=== PATIENT | female | born 1950 | race Caucasian/White ===

== ENCOUNTER 2016-12-14 01:56 | Inpatient (IN) | payer OTHER ==
[~2016-12-14] VITALS: Ht 157.5 cm; Wt 70.3 kg
[~2016-12-14 01:56] MED LIST: ALENDRONATE SOD70 MG PO; FIBRO-TABS1 TAB PO; IBUPROFEN200 M2 PO; SERTRALINE HCL50 MG PO; TRAMADOL HCL50 M1 PO; TYLENOL325 M1 PO; VICODIN5-300 PO; VITAMIN D32000 I1 PO; ZOFRAN ODT4 M1 SL
--- NOTE | 2016-12-14 13:46 | RADIOLOGY REPORT ---
EXAMINATION:\H\ \N\XR CHEST CLINICAL INFORMATION: Left upper lung navigational bronchoscopy in OR COMPARISON: Chest radiograph 11/28/2016 CT 12/05/2016. TECHNIQUE: Single fluoroscopic view of the chest was obtained. FINDINGS: Total fluoroscopic time was 0.9 minutes. The single image demonstrates a scope overlying the left hilar region with additional tubing extending laterally from the hilar region, likely a biopsy device. This is seen at the level of the left upper lobe opacity on prior CT. IMPRESSION: Fluoroscopic guidance for left upper lung bronchoscopy. Please refer to procedural report for further information.
--- NOTE | 2016-12-14 15:52 | Cons- CRCU ---
MITCHELLSARMAD 12/14/16 1552: General Information and HPI Consulting Request Date of Consult: 12/14/16 Requested By: Dr. Mcneal Reason for Consult: Non-small cell CA Source of Information: patient Exam Limitations: clinical condition (pain) History of Present Illness: Ms. Cordova is a 66-year-old woman with a PMH of hyperparathyroidism s/p partial parathyroidectomy, diverticulitis, fibromyalgia, mild arthritis, depression, and generalized anxiety disorder who was recently treated in the hospital for gallstone pancreatitis leading to a cholecystectomy. During that work-up and treatment, an irregular focal masslike opacification in the anterior segment of the left upper lobe measuring 22.4 x 1.6 x 1.4 was identified. Subsequent outpatient evaluation of the lesion was PET positive. Today, she was scheduled for a navigational bronchoscopy which identified a non small cell CA in the left upper lobe and subsequently, a ABBIE lobectomy with mediastinal lymph node dissection was performed with eventual placement of 2 chest tubes. At the time of the interview, she had no acute complaints aside from pain at the site of the incision and her chest tubes. She denied any significant dyspnea, coughing, hemoptysis, palpitations, lightheadedness, dizziness, or diplopia. She also denies any fevers, chills, diaphoresis, nausea or vomiting. Allergies/Medications Allergies: Coded Allergies: shellfish derived (Mild, RASH -SPECIFICALLY LOBSTER BUT DOESNT EAT ANY SEAFOOD 02/20/16) Home Med List: Alendronate Sodium 70 MG TAB 1 TAB PO QSUN BONES (Reported) in the morning, at least 30 minutes before the first food, beverage, or medication of the day CHOLECALCIFEROL (VITAMIN D3) (Vitamin D-3) 2,000 IU SGL 1 SGL PO DAILY SUPPLEMENT (Reported) Sertraline HCl 50 MG TABLET 1 TAB PO DAILY depression (Reported) Current Medications: Current Medications Sig/Lasha Start time Last Medication Dose Route Stop Time Status Admin Acetaminophen 1,000 MG Q6 12/14 1800 AC 12/14 IV 12/15 Albuterol Sulfate 3 ML Q4 12/14 2200 AC 12/14 INH 2047 Alendronate Sodium 70 MG QSUN 12/17 0700 AC PO Cefazolin Sodium 2,000 MG IQ8 12/14 2000 CAN IV 12/15 0801 Cefazolin Sodium 2 GM Q8H 12/14 1999 AC 12/14 N/A 1 UNIT IV 12/155 Cholecalciferol 2,000 IU DAILY 12/15 1000 AC PO Dextrose/Sodium 1,000 ML CONTINOUS INFUSION 12/14 2325 AC Chloride IV Docusate Sodium 100 MG BID 12/14 2199 AC PO Famotidine 20 MG BID 12/14 2199 AC IV Heparin Sodium 5,000 UNIT Q8 12/15 0600 AC (Porcine) SC Morphine Sulfate 100 MG Q24H PRN 12/14 1914 CAN Sodium Chloride 48 ML IV Morphine Sulfate 100 MG Q24H PRN 12/14 1914 AC Sodium Chloride 48 ML IV Morphine Sulfate 100 MG Q24H PRN 12/14 1645 DC Sodium Chloride 48 ML IV Ondansetron HCl 4 MG Q6P PRN 12/14 1899 AC IV Sertraline HCl 50 MG DAILY 12/15 1000 AC PO Review of Systems Review of Systems Constitutional: Reports: see HPI. 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 spouse Services at Home: None Smoking Status: Unknown If Ever Smoked Functional Ability ADLs Independent: dressing, eating, toileting, bathing. Ambulation: independent IADLs Independent: shopping, housework, finances, food prep, telephone, transportation , medication admin. Exam & Diagnostic Data Last 24 Hrs of Vital Signs/I&O Vital Signs Date Time Temp Pulse Resp B/P Pulse O2 O2 Flow FiO2 Ox Delivery Rate 12/14 1999 98.6 83 15 109/51 12/14 1999 98 Nasal 2.0L Cannula 12/14 1920 Nasal 3.0L Cannula 12/14 1899 99.2 87 18 128/60 12/14 1829 99.2 87 18 128/60 96 Nasal 2.0L Cannula 12/14 1829 96 Nasal 2.0L Cannula Physical Exam General Appearance: well developed/nourished, no apparent distress, alert, awake , mild distress Head: atraumatic, normal appearance Eyes: Bilateral: normal appearance, PERRL, EOMI. Neck: normal inspection, supple Respiratory: respiratory distress, quiet breath sounds with moderate resp effort right lung clear to auscultation rhonchi noted in the left upper lobe chest tubes in place to suction draining sanguinous fluid, dressing dry and in tact. chest is non tender to palpation Cardiovascular: S1/S2 + with 2/6 systolic murmur w/o radiation Gastrointestinal: normal bowel sounds, soft, non-tender Extremities: normal inspection Last 48 Hrs of Labs/Bon: Vital Signs Date Time Temp Pulse Resp B/P Pulse O2 O2 Flow FiO2 Ox Delivery Rate 12/14 1999 98.6 83 15 109/51 12/14 1999 98 Nasal 2.0L Cannula 12/14 192 Nasal 3.0L Cannula 12/14 190 99.2 87 18 128/60 12/14 1830 99.2 87 18 128/60 96 Nasal 2.0L Cannula 12/14 183 96 Nasal 2.0L Cannula Diagnostic Data CXR Results SERVICE DATE: 12/14/16 EXAM TYPE: RAD - XRY-PORTABLE CHEST XRAY EXAMINATION: XR PORTABLE CHEST CLINICAL INFORMATION: Left upper lobe status post navigational bronchoscopy COMPARISON: Prior imaging, most recently fluoroscopic study from today TECHNIQUE: Portable view of the chest was obtained. FINDINGS: Left-sided chest tubes in place. Cardiac leads overlie the chest. Low lung volumes. Increased hazy opacity overlies the left midlung, possibly representing a biopsy site. The right lung is well-expanded and clear. No pneumothorax. Obtaining is gas noted along the left chest wall. The cardiomediastinal silhouette is unremarkable. IMPRESSION: Focal opacity overlying the left midlung, likely representing a biopsy site. No pneumothorax. Chest tubes in place. Assessment/Plan Impression/Plan: Ms. Cordova is a 66-year-old woman who was recently treated in the hospital for gallstone pancreatitis leading to a cholecystectomy with incidentally found ABBIE mass, subsequently diagnosed by navigational bronchoscopy today with non-small cell CA s/p ABBIE lobectomy with mediastinal lymph node dissection. Problem List/Assessment and Plan Left upper lobe NSCCa * PO#0 s/p ABBIE lobectomy with mediastinal lymph node dissection. * Chest tubes currently in place to suction draining sanguinous fluid - see CXR reading above. We will follow outputs and remove per CT surgery most likely when the output decreases significantly * Consider repeat CXR in the am * we will follow blood work and electrolytes * ABx with Cefazolin 2gram x2 doses q8 - currently recieving her second dose. * Pain control with morphine TRAVEL COORDINATOR per CT surgery * LN histopathology pending Osteoporosis * Continue Vitamin D and alendronate Depression * Continue sertraline 50mg daily FULL CODE ALPS/heparin SC for DVT ppx tylenol IV for fevers Consult Acknowledgment - Thank you for your consult request. ONOFRE SCOTT MD 12/14/16 1612: Assessment/Plan Other Findings/Comments: Onofre Hedrick M.D. have examined this patient, reviewed available EMR data, personally reviewed images, discussed with resident/PA/CONTOUR BAND SAW OPERATOR VERTICAL, discussed management plan with housestaff and nursing staff, discussed managment plan all of healthcare providers, discussed management plan with patient and/or family, agreed with resident/PA/CONTOUR BAND SAW OPERATOR VERTICAL. The past history and parts of the chart have been autopopulated. Impression 66-year-old woman with a cholecystectomy September with an incidental finding of a left upper lobe mass. Lesion was a regular in the left upper lobe and PET positive. Patient underwent navigational bronchoscopy with thinking followed by resection of mass consistent with carcinoma and has followed by lobectomy. Plan - Aggressive pain control - Post thoracotomy protocol with TRC - Chest tube output and monitoring per cardiothoracic surgery - Strict ins and outs measurements - Monitor blood work and electrolytes - DVT prophylaxis at all times TTS 40 min Consult Acknowledgment - Thank you for your consult request.
--- NOTE | 2016-12-14 16:21 | Admission Certification ---
Admission Certification Certification Statement - As attending physician, I certify that at the time of - admission, based on clinical presentation, severity of - symptoms, need for further diagnostic testing and - therapeutic interventions, and risk of adverse outcomes - without in-hospital treatment, in my clinical assessment, - this patient requires an acute hospital stay for a minimum - of two nights or longer. I have also considered psychsocial - factors such as support system, advanced age, financial - issues, cognitive issues, and failed out-patient treatments, - past re-admission history, safety of patient, and lack of - compliance as applicable. Specific rationale supporting this admission is: Major thoracic surgery with postoperative intensive care unit stay of at least 2 days.
--- NOTE | 2016-12-14 16:23 | Operative Report ---
Operative/Inv Procedure Report Surgery Date: 12/14/16 Name of Procedure: Navigational bronchoscopy with ink marking of left upper lobe lung lesion Pre-Operative Diagnosis: Left upper lobe lung nodule Post-Operative Diagnosis: Same Estimated Blood Loss: none Surgeon/Certified Executive Chef: Onofre Cho MD Anesthesia: general endotracheal tube Operative/Procedure Note Note: After placement of monitoring lines and induction of general anesthesia fiberoptic bronchoscopy was done through the endotracheal tube. The endobronchial anatomy was normal. The navigation system was then registered and the catheter was advanced with navigational guidance and fluoroscopy to the left upper lobe lung nodule. 0.75 mL of methylene blue was injected aiming towards the pleural surface. The guider catheter was removed. The there was no evidence of bleeding. The procedure proceeded with the resection. CC: SONIA BLAKE,ONOFRE
--- NOTE | 2016-12-14 16:27 | Operative Report ---
Operative/Inv Procedure Report Surgery Date: 12/14/16 Name of Procedure: Left thoracoscopy with wedge resection left upper lobe lung nodule. Left upper lobectomy with mediastinal lymph node dissection Pre-Operative Diagnosis: Left upper lobe lung nodule Post-Operative Diagnosis: Non-small cell carcinoma the left upper lobe Estimated Blood Loss: 50ml to 100ml Surgeon/Chemical Process Engineer: ZECHARIAH BLAKE,JORGITO Olivera Anesthesia: general endotracheal tube Operative/Procedure Note Note: At the completion of the navigational bronchoscopy the endotracheal tube was changed to a double-lumen endotracheal tube. The patient was placed in the right lateral decubitus position and her left chest was prepped with an draped in sterile fashion. An access thoracostomy site was made in the midaxillary line and thoracoscope was introduced. The ink marking was seen very clearly on the surface of the left upper lobe anteriorly. To access thoracostomy sites were made and the lesion was resected. Intraoperative frozen section showed evidence of non-small cell carcinoma. A posterior lateral thoracotomy incision was then made and the chest was entered through the fifth intercostal space. There was little to no development of the fissure so dissection was done from the superior hilum in a no touch technique allowing identification of all of the pulmonary arterial branches. These were resected with the Endo BECKY vascular stapler. The superior vein was similarly ligated with a vascular stapler. Once the pulmonary arterial adhesions were taken down all the fissure was done from posterior to anterior with the Endo BECKY stapler. The final pulmonary arterial branches to the lingula was then resected with the Endo BECKY vascular stapler. The main bronchus was then encircled and it was secured with the TA 55 reticulating stapler. Intraoperative frozen section showed no evidence of carcinoma the bronchial stump. Lymph nodes removed from level V level and level IX and sent for permanent histology. The inferior pulmonary ligament was divided. Long-acting rib blocks were placed. The fissure was sprayed with Pro seal sealant. The bronchial stump was insufflated under water to 30 mmHg with no evidence of air leak. A portion of the sixth rib was resected in the beginning to allow for better access. The ribs were then reapproximated with pericostal sutures. The lung was reinsufflated under direct vision. The wound was then closed in layers with running Vicryl suture followed by running Vicryl subcuticular suture. The patient tolerated the procedure well and was brought to the recovery room awake and extubated in stable condition. CC: SONIA BLAKE,RAE
--- NOTE | 2016-12-14 17:17 | RADIOLOGY REPORT ---
EXAMINATION: XR PORTABLE CHEST CLINICAL INFORMATION: Left upper lobe status post navigational bronchoscopy COMPARISON: Prior imaging, most recently fluoroscopic study from today TECHNIQUE: Portable view of the chest was obtained. FINDINGS: Left-sided chest tubes in place. Cardiac leads overlie the chest. Low lung volumes. Increased hazy opacity overlies the left midlung, possibly representing a biopsy site. The right lung is well-expanded and clear. No pneumothorax. Obtaining is gas noted along the left chest wall. The cardiomediastinal silhouette is unremarkable. IMPRESSION: Focal opacity overlying the left midlung, likely representing a biopsy site. No pneumothorax. Chest tubes in place.
--- NOTE | 2016-12-14 17:36 | Admission Core Measures ---
Acute Coronary Syndrome Inclusion Criteria ACS Diagnosis No Inpatient Core Measures LDL Reminder: If No, please order W/I first 24hr of stay Congestive Heart Failure Inclusion Criteria CHF Diagnosis No Cerebrovascular accident Inclusion Criteria CVA/TIA Diagnosis No Inpatient Core Measures Bedside Swallow Eval Reminder: If BSE failed, place ST order Antithrombotic Reminder: Order Antithrombotic Medication by end of day 2 Antithrombotic Reminder: Document Reason Antithrombotic Not ordered by end of day 2 AFIB/Flutter Reminder: If Present, add to problem list AFIB/Flutter Reminder: Order Anticoag Medication for pts with AFIB/Flutter Atherosclerosis Reminder: If Present, add to problem list LDL Reminder: If No, please order W/I first 24hr of stay PT Order Reminder: If No, please order Venous thromboembolism Inpatient Core Measures VTE Risk Factors: Age > 40, Cancer/chemo/oth therapy, Surgery VTE Prophylaxis Ordered Inpt Mech & Pharm No Mech VTE prophylaxis d/t No contraindications No VTE Pharm Prophylaxis d/t No contraindications Inclusion Criteria - Per Current guidelines, there needs to be overlap - treatment for the first 5 days of Warfarin therapy. - Parenteral Anticoagulation (IV or SC) needs to be - given along with Warfarin therapy. VTE Diagnosis No VTE Type NONE VTE Confirmed by (Test) NONE Problem List As ranked by this Provider includes Assessment & Plan 1. Lung nodule 2. S/P lobectomy of lung 3. S/P thoracotomy HOME MEDS Home Med List Alendronate Sodium 70 MG TAB 1 TAB PO QSUN BONES (Reported) CHOLECALCIFEROL (VITAMIN D3) (Vitamin D-3) 2,000 IU SGL 1 SGL PO DAILY SUPPLEMENT (Reported) Sertraline HCl 50 MG TABLET 1 TAB PO DAILY depression (Reported)
[2016-12-14 18:30] VITALS: BP 128/60
[2016-12-14 19:00] VITALS: BP 128/60
[2016-12-14 20:00] VITALS: BP 109/51
--- NOTE | 2016-12-14 21:02 | NUR ---
PT DROWSY, EASILY AROUSABLE TO VERBAL STIMULI, ORIENTED X3, FOLLOWS COMMANDS. 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 RT SIDED BREATH SOUNDS CLEAR, DIMINISHED THOUGHOUT LT SIDE. LT SIDE ANTERIOR AND POSTERIOR CHEST TUBES IN PLACE-NO CREPITUS NOTED, DRAINING SEROSAGINIOUS DRAINAGE, ANTERIOR CHEST TUBE WITH LARGE AIR LEAK, POSTERIOR CHEST TUBE WITHOUT AIR LEAK. NO SOB OR RESP DISTRESS NOTED AT PRESENT. SEE FLOW SHEET FOR VS, 02 SATS, I/O'S. MONITOR SHOWS NSR-ST, NO ECTOPY NOTED AT PRESENT. LT RADIAL YULI IN PLACE-GOOD WAVEFORM. BP STABLE AT PRESENT. ABD SOFFT, NONTENDER, NONDISTENDED, HYPOACTIVE BOWEL SOUNDS. PARKINSON IN PLACE-DRAINING ADEQUATE AMT OF CLEAR YELLOW URINE. SKIN INTACT. LT BACK DRESSING WITH SM AMT OF SEROSAGINIOUS DRAINAGE-OUTLINED WITH MARKER
[2016-12-14 22:00] VITALS: BP 98/50
--- NOTE | 2016-12-14 23:54 | PN- Thoracic Surgery ---
Subjective Subjective: Postoperative check Pt is now POD #0 s/p navigational bronchoscopy, wedge resection, found to have margins positive for malignancy on frozen section. She subsequently underwent Left upper lobectomy, which she tolerated well, and was transferred to the ICU for routine post-thoracotomy care. She admits to discomfort at the incision and chest tube sites, which has been reasonably controlled with the morphine writer technical publications. She admits to pain with deep breathing as well. She is tolerating ice chips. No nausea or vomiting. No flatus as of yet. Otherwise denies headache, dizziness. Palma catheter remains in place. Objective Vital Signs and I&Os Vital Signs Date Time Temp Pulse Resp B/P Pulse O2 O2 Flow FiO2 Ox Delivery Rate 12/14 220 79 17 98/50 12/14 1999 98.6 83 15 109/51 12/14 1999 98 Nasal 2.0L Cannula 12/14 192 Nasal 3.0L Cannula 12/14 190 99.2 87 18 128/60 12/14 1829 99.2 87 18 128/60 96 Nasal 2.0L Cannula 12/14 1829 96 Nasal 2.0L Cannula Urine output was 80-100 ml per hour upon arrival to ICU, but has dropped to 25 ml x [address] output since OR is 140 mL in the anterior tube and 160 mL from the posterior tube. Physical Exam: General: Pt is sleeping comfortably, but easily arousable. Cardiac: Regular Pulm: Posterior thoracotomy dressing contains a small amount of drainage, which doesn't appear to have expanded outside of the marked area from earlier today. Poor inspiratory effort is noted, but shallow breathing is clearly due to pain. There is a robust air leak noted from the anterior CT, but no air leak noted in the posterior tube. Output is serosanginous. 140 from the anterior tube and 160 from posterior tube so far. Assessment/Plan Assessment/Plan Patient is a 66-year-old female with medical history significant for depression, who is now postoperative day #0 status post VATS wedge resection, resulting in positive margins on frozen section, and subsequent conversion to left upper lobectomy. There are [address] 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 -Continue clear liquids for now. Okay to advance diet as tolerated. -Increase IV fluids to 125 mL per hour overnight. If her urine output improves in the morning, we can decrease her rate again. Leave Palma catheter in place for critical I's and O's. -Keep chest tubes in place to Pleur-evac suction. Follow-up chest x-ray in the morning. Continue to monitor outputs. -Encourage incentive spirometer and deep breathing. TRC's. -Ancef 2 doses for surgical prophylaxis. -Subcutaneous heparin and Alps for DVT prophylaxis. -Pepcid for GI prophylaxis. -Colace twice a day for bowel regimen. -Medical management per critical care team. Appreciate consult and input. -Continue to monitor closely. Core Measures/Miscellaneous Palma Catheter Date In: 12/14/16 Still Needed? Yes Venous Thromboembolism VTE Risk Factors: Age > 40, Cancer/chemo/oth therapy, Surgery VTE Contraindications: No Contraindications VTE [facility] Diagnosis: No VTE Type: NONE VTE Confirmed by (Test): NONE Beta Rachna Is Beta Rachna a Home Med? No Antibiotics Is Patient on Antibiotics? Yes If Yes: prophylaxis
[2016-12-15] VITALS (11 sets, daily range): BP systolic 92–135; BP diastolic 43–64
--- NOTE | 2016-12-15 00:20 | NUR ---
URINE OUTPUT DECREASING-25ML/HR FOR 2HRS-REPORTED TO SURGICAL PEYMAN MALCOLM-INCREASED IVF TO 125ML/HR ORDERED-SEE I/O SHEET-WILL MONITOR
--- NOTE | 2016-12-15 05:30 | PN- Thoracic Surgery ---
See Addendum Subjective Subjective: No acute events overnight for major complaints this morning. Patient continues to admit to discomfort at the surgical incision site, as expected. She admits to pain with deep breathing, as expected. She is tolerating ice chips. No nausea or vomiting overnight. She did have some hiccups last night. Palma catheter remains in place. IV fluid rate was increased slightly last night due to borderline urine output. Per RN, arterial line and is not correlating with manual blood pressures and is not providing successful blood return for blood draws. Otherwise denies headache, dizziness. Objective Vital Signs and I&Os Vital Signs Date Time Temp Pulse Resp B/P Pulse O2 O2 Flow FiO2 Ox Delivery Rate 12/15 0400 97.4 79 18 100/47 12/15 0400 98 Nasal 2.0L Cannula 12/15 0200 76 18 92/45 12/15 0000 97.9 78 20 122/64 12/15 0000 98 Nasal 2.0L Cannula 12/15 0000 97.9 78 20 122/64 98 Nasal 2.0L Cannula 12/14 2200 79 17 98/50 12/14 1999 98.6 83 15 109/51 12/14 1999 98 Nasal 2.0L Cannula 12/14 1921 Nasal 3.0L Cannula 12/14 1900 99.2 87 18 128/60 12/14 1830 99.2 87 18 128/60 96 Nasal 2.0L Cannula 12/14 1830 96 Nasal 2.0L Cannula Intake & Output 12/15 0800 12/15 0000 12/14 1600 12/14 0800 12/14 0000 12/13 1600 Intake Total 311 Output Total 681 Balance -370 Intake, IV 311 Number 0 Bowel Movements Output, Chest 176 Tube Drainage Output, Urine 505 Patient 155 lb Weight Physical Exam: General: Pt is sleeping comfortably, but easily arousable. Cardiac: Regular Pulm: Posterior thoracotomy dressing contains a small amount of drainage, slightly increased versus last night, but not leaking outside of the dressing. Poor inspiratory effort continues due to pain. There is a persistent air leak noted from the anterior CT, but no air leak noted in the posterior tube. Output is serosanginous. 200 from the anterior tube and 220 from posterior tube so far since surgery. Extremities: No significant lower extremity edema or calf tenderness are appreciated. Alps arm place. Labs this morning are still pending. Assessment/Plan Assessment/Plan Patient is a 66-year-old female with medical history significant for depression, who is now postoperative day #1 status post VATS wedge resection, resulting in positive margins on frozen section, and subsequent conversion to left upper lobectomy. There are [address] Plan: -Continue pain control with morphine HEAD OF IT. -Continue clear liquids for now. Okay to advance diet as tolerated. -Continue IV fluids at 125 mL per hour until increased by mouth fluid intake. Leave Palma catheter in place for critical I's and O's. -Keep chest tubes in place to Pleur-evac suction. Follow-up chest x-ray this morning. Continue to monitor outputs. -Encourage incentive spirometer and deep breathing. TRC's. -Okay to discontinue arterial line. -Antibiotic prophylaxis is complete. -Subcutaneous heparin and Alps for DVT prophylaxis. -Pepcid for GI prophylaxis. -Colace twice a day for bowel regimen. -Medical management per critical care team. Appreciate input. -Continue to monitor closely. Core Measures/Miscellaneous Palma Catheter Date In: 12/14/16 Venous Thromboembolism VTE Risk Factors: Age > 40, Cancer/chemo/oth therapy, Surgery VTE Contraindications: No Contraindications VTE Prophylaxis Ordered Inpt: Mech & Pharm VTE Diagnosis: No VTE Type: NONE VTE Confirmed by (Test): NONE Beta Rachna Is Beta Rachna a Home Med? No Antibiotics Is Patient on Antibiotics? No
[2016-12-15 06:13] LABS: ABSOLUTE BASOPHIL COUNT 0 /CUMM (0.0-0.2); ABSOLUTE EOSINOPHIL COUNT 0 /CUMM (0.0-0.7); ABSOLUTE GRANULOCYTE CT 6.4 /CUMM (1.4-6.5); ABSOLUTE LYMPH COUNT 1.2 /CUMM (1.2-3.4); ABSOLUTE MONOCYTE COUNT 0.4 /CUMM (0.10-0.60); BASOPHIL % 0.3 % (0.0-2.0); EOSINOPHIL % 0.5 % (0-5); GRANULOCYTE % 79.9 % (42.2-75.2); MEAN CORPUSCULAR HGB 30.2 PG (27.0-31.0); MEAN CORPUSCULAR HGB CONC 33.4 G/DL (33.0-37.0); MEAN CORPUSCULAR VOLUME 90.4 FL (81.0-99.0); MEAN PLATELET VOLUME 9.4 FL (7.4-10.4); PLATELET COUNT 238 /CUMM (130-400); RBC DISTRIBUTION WIDTH 14.1 % (11.5-14.5); RED BLOOD CELL CT 3.69 /CUMM (4.20-5.40)
[2016-12-15 06:22] LABS: HEMATOCRIT 33.4 % (37-47)
--- NOTE | 2016-12-15 07:32 | NUR ---
PT SLEPT ON AND OFF DURING THE NIGHT. PAIN RATED 6-8 OUT OF 10 FOR SHIFT. CONTINUES ON MORPHINE ANTIQUE REFINISHER. REMAINS A/OX3. NO CHANGE IN BREATH SOUNDS, CHEST TUBES DRAINING SEROSAGINIOUS DRAINAGE, ANTERIOR CHEST TUBE WITH LARGE AIR LEAK, NO AIR LEAK POSTERIOR CHEST TUBE. NO CREPITUS NOTED. LT BACK DRESSING WITH BLOODY DRAINAGE-EXTENDED SLIGHTLY BEYOND MARKED LINES. NSR, NO ECTOPY FOR SHIFT, SBP-90-100'S FOR SHIFT. BORDERLINE URINE OUTPUT FOR SHIFT-SURGICAL PA AWARE. SKIN INTACT. HYPOACTIVE BOWEL SOUNDS. NO NAUSEA, VOMITING NOTED THOUGHOUT SHIFT
--- NOTE | 2016-12-15 09:33 | PN- Resident CRCU ---
Subjective HPI/CRCU Issues: Patient in ICU for: Postop day 1 status post right upper lobe lobectomy for non- small cell cancer. Has remained hemodynamically stable with O2 sats in the high 90s on 2 L nasal cannula. MAXIMUM TEMPERATURE 99.2. Blood pressure is ranging between 94-130 systolic and 43-60 diastolic. Objective Vital Signs & I&O Last 8 Hrs of Vitals and I&O: Intake & Output 12/15 1600 Intake Total 1600 Output Total 410 Balance 1190 Intake, IV 640 Intake, Oral 960 Number 0 Bowel Movements Output, Chest 110 Tube Drainage Output, Urine 300 Exam General Appearance: well developed/nourished, no apparent distress, alert, awake , anxious Head: atraumatic, normal appearance Ears, Nose, Throat: normal pharynx Neck: normal inspection, supple Respiratory: decreased breath sounds, tender to palpation in back. Has [address] Draining serosang. fluid attached to wall suction. Both tubes covered with clean bandages Cardiovascular: regular rate/rhythm Gastrointestinal: soft, non-tender Extremities: normal inspection Cranial Nerves: normal hearing, normal speech, PERRL Current Medications: Current Medications Sig/Lasha Start time Last Medication Dose Route Stop Time Status Admin Acetaminophen 1,000 MG Q6 12/14 1800 AC 12/15 IV 12/15 1759 1136 Albuterol Sulfate 3 ML Q4 12/14 2199 AC 12/15 INH 1628 Alendronate Sodium 70 MG QSUN 12/17 0700 AC PO Cefazolin Sodium 2,000 MG IQ8 12/14 2000 CAN IV 12/15 0801 Cefazolin Sodium 2 GM Q8H 12/14 2000 DC 12/15 N/A 1 UNIT IV 12/15 0429 0440 Cholecalciferol 2,000 IU DAILY 12/15 1000 AC 12/15 PO 0902 Dextrose/Sodium 1,000 ML Q13H 12/15 1145 CAN Chloride IV Dextrose/Sodium 1,000 ML CONTINOUS INFUSION 12/14 2326 DC 12/15 Chloride IV 0606 Docusate Sodium 100 MG BID 12/14 220 AC 12/15 PO 0902 Famotidine 20 MG BID 12/14 2200 AC 12/15 IV 0902 Heparin Sodium 5,000 UNIT Q8 12/15 0600 AC 12/15 (Porcine) SC 1416 Morphine Sulfate 100 MG Q24H PRN 12/14 1915 CAN Sodium Chloride 48 ML IV Morphine Sulfate 100 MG Q24H PRN 12/14 191 AC Sodium Chloride 48 ML IV Morphine Sulfate 100 MG Q24H PRN 12/14 1645 DC Sodium Chloride 48 ML IV Ondansetron HCl 4 MG Q6P PRN 12/14 1900 AC 12/15 IV 1121 Sertraline HCl 50 MG DAILY 12/15 1000 AC 12/15 PO 0902 Impression/Plan Impression/Problem List Impression: This is a 66-year-old female with past medical history of hyperparathyroidism status post partial parathyroidectomy, diverticulitis, osteoporosis, arthritis, depression, generalized anxiety, fibromyalgia who was recently hospitalized [place] for gallstone pancreatitis with subsequent cholecystectomy. At that time an irregular masslike opacification in the anterior segment of the left upper lobe was identified. Lesion was subsequently PET positive. On 12/14/2016 patient went for navigational bronchoscopy which identified non-small cell carcinoma in left upper lobe, she then had a VATS with wedge resection of the left upper lobe with positive margins which resulted in subsequent left upper lobectomy with lymph node biopsy. She had 2 chest tubes placed Patient is now transferred to ICU for closer monitoring with medicine consult onboard. PLAN Respiratory: She has left upper lobe resection for non-small cell lung cancer. This is postop day 1. She had [address] this AM. One of them was pulled out successfully. She continues to drain serosanguineous fluid from the chest tube. She is currently satting 98% on 2 L nasal cannula. * Pending chest x-ray this a.m. * Patient received 2 doses of cefazolin 2 g every 8 hours post surgically * Pain control with morphine ENGINEERING AND OPERATIONS DIRECTOR * TRC with thoracotomy protocol * Strict I's and O's; Patient on Palma * Will discontinue arterial line * Encourage IS * Pepcid for GI prophylaxis * Follow-up histopathology of lymph nodes ID: Patient is stable from ID perspective. Continue to monitor. She received antibiotics after surgery. She has remained afebrile MAXIMUM TEMPERATURE 99.2, with normal white count. Cardio: Patient is stable from a cardio perspective. Continue to monitor. Heme/Onc: Patient H&H this a.m. was 11 and 33. She has remained hemodynamically stable. We'll continue to monitor her. Musculoskeletal: * pt has hx of osteoporosis: Continue vitamin D and alendronate GI/ Nephro/Endo: Stable continue to monitor. Depression: Continue sertraline 50 mg daily Problem List: 1. Fall 2. S/P lobectomy of lung Pain Ratin Pain Location: none Tomorrow's Labs & Rationales: none Plan DVT/Prophylaxis: mechanical, pharmacological
--- NOTE | 2016-12-15 10:27 | PN- CRCU ---
Subjective HPI/Critical Care Issues: Patient seen and examined this morning. The pain is about 6 out of 10 and the plan is to remove the posterior chest. Otherwise no other events no shortness of breath out of the ordinary. No nausea vomiting no diarrhea no constipation no chest pain. Objective Current Medications: Current Medications Sig/Lasha Start time Last Medication Dose Route Stop Time Status Admin Acetaminophen 1,000 MG Q6 12/14 1800 AC 12/15 IV 12/15 1759 0607 Albuterol Sulfate 3 ML Q4 12/14 2200 AC 12/15 INH 0755 Alendronate Sodium 70 MG QSUN 12/17 0700 AC PO Cefazolin Sodium 2,000 MG IQ8 12/14 2000 CAN IV 12/15 0801 Cefazolin Sodium 2 GM Q8H 12/14 2000 DC 12/15 N/A 1 UNIT IV 12/15 0429 0440 Cholecalciferol 2,000 IU DAILY 12/15 1000 AC 12/15 PO 0902 Dextrose/Sodium 1,000 ML CONTINOUS INFUSION 12/14 2326 AC 12/15 Chloride IV 0606 Docusate Sodium 100 MG BID 12/14 2200 AC 12/15 PO 0902 Famotidine 20 MG BID 12/14 2200 AC 12/15 IV 0902 Fentanyl Citrate 250 MCG .STK-MED ONE 12/14 1524 DC IM 12/14 1525 Fentanyl Citrate 250 MCG .STK-MED ONE 12/14 1523 DC IM 12/14 1524 Heparin Sodium 5,000 UNIT Q8 12/15 0600 AC 12/15 (Porcine) SC 0610 Hydromorphone HCl 2 MG .STK-MED ONE 12/14 1643 DC IM 12/14 1644 Hydromorphone HCl 2 MG .STK-MED ONE 12/14 1523 DC IM 12/14 1524 Midazolam HCl 2 MG .STK-MED ONE 12/14 1524 DC IM 12/14 1525 Morphine Sulfate 100 MG Q24H PRN 12/14 1915 CAN Sodium Chloride 48 ML IV Morphine Sulfate 100 MG Q24H PRN 12/14 1915 AC Sodium Chloride 48 ML IV Morphine Sulfate 100 MG Q24H PRN 12/14 1645 DC Sodium Chloride 48 ML IV Ondansetron HCl 4 MG Q6P PRN 12/14 1900 AC IV Sertraline HCl 50 MG DAILY 12/15 1000 AC 12/15 PO 0902 Vital Signs & I&O Last 24 Hrs of Vitals and I&O: Vital Signs Date Time Temp Pulse Resp B/P Pulse O2 O2 Flow FiO2 Ox Delivery Rate 12/15 0758 100 Nasal 2.0L Cannula 12/15 0600 76 13 94/43 12/15 0400 97.4 79 18 100/47 12/15 0400 98 Nasal 2.0L Cannula 12/15 0200 76 18 92/45 12/15 0000 97.9 78 20 122/64 12/15 0000 98 Nasal 2.0L Cannula 12/15 0000 97.9 78 20 122/64 98 Nasal 2.0L Cannula 12/14 2200 79 17 98/50 12/14 1999 98.6 83 15 109/51 12/14 1999 98 Nasal 2.0L Cannula 12/14 192 Nasal 3.0L Cannula 12/14 190 99.2 87 18 128/60 12/14 1830 99.2 87 18 128/60 96 Nasal 2.0L Cannula 12/14 1830 96 Nasal 2.0L Cannula Intake & Output 12/15 1600 12/15 0800 12/15 0000 Intake Total 962 311 Output Total 275 681 Balance 687 -370 Intake, IV 962 311 Number 0 0 Bowel Movements Output, Chest 176 Tube Drainage Output, Urine 275 505 Patient 155 lb Weight Exam Other Physical Findings: General - Alert, awake and oriented HEENT - normocephalic, atraumatic Cardiovascular - S1, S2 Lungs - rare rhonchi, chest tubes in place Abdomen - soft, bowel sounds positive, no tenderness Extremities - without edema or cyanosis Results Last 24 Hrs of Lab Results: Laboratory Tests 12/15/16 0438: Anion Gap 7, Estimated GFR > 60, BUN/Creatinine Ratio 17.1, CBC w Diff NO MAN DIFF REQ, RBC 3.69 L, MCV 90.4, MCH 30.2, RDW 14.1, MPV 9.4, Gran % 79.9 H, Lymphocytes % 14.9 L, Monocytes % 4.4, Eosinophils % 0.5, Basophils % 0.3, Absolute Granulocytes 6.4, Absolute Lymphocytes 1.2, Absolute Monocytes 0.4, Absolute Eosinophils 0, Absolute Basophils 0, PUBS MCHC 33.4 Impression/Plan Impression/Plan Impression/Plan: Impression 66-year-old woman with a cholecystectomy November with an incidental finding of a left upper lobe mass. Lesion was a regular in the left upper lobe and PET positive. Patient underwent navigational bronchoscopy with thinking followed by resection of mass consistent with carcinoma and has followed by lobectomy. Plan - Aggressive pain control - Post thoracotomy protocol with TRC - Chest tube output and monitoring per cardiothoracic surgery - Strict ins and outs measurements - Monitor blood work and electrolytes - DVT prophylaxis at all times TTS 35 min
--- NOTE | 2016-12-15 10:30 | NUR ---
0700:AFEBRILE, AWAKE, ALERT, C/O PAIN 8/10 TO LEFT BACK/SIDE PATIENT REPOSITIONED, MORPHINE CAMP MAINTENANCE SUPERVISOR INTACT, D5 1/2NS MAINTAINED AT 125 MLS/HR; NSR ON TELE MONITOR HR 79-90, BP 100/50, DENIES CP,NO ECTOPY NOTED; 2L NC O2SAT 99%, RR 17-20, ANTERIOR AND POSTERIOR CHEST TUBE BOTH TO LWS W/ S.S OUTPUT,ANTERIOR CHEST TUBE W/KNOWN AIR LEAK, IST/DEEP BREATH ENCOURAGED, LUNG SOUNDS CLEAR ON RIGHT, LEFT HARD TO HEAR D/T AIR LEAK; NO CREPITUS, NO SOB, NO COUGH NOTED, MD'S PULLED POSTERIOR CHEST TUBE AT 1000 TOTAL OF 350CC OUTPUT,DSG TO LEFT BACK AND CT SITE INTACT W/ OLD DRAINAGE OUTLINED ON DSG; PARKINSON INTACT ADEQUATE AMOUNT C/Y U/O: + BS TOLERATING CLEAR LIQUIDS/PO MEDS, DENIES NAUSEA, WILL CONTIUE TO CLOSELY MONITOR
--- NOTE | 2016-12-15 11:34 | NUR ---
SPOKE TO NAFISA MORLEY OK TO KEEP FLUIDS UNTIL AFTER LUNCH C/O OF NAUSEA AT THIS TIME ZOFRAN GIVEN
--- NOTE | 2016-12-15 12:10 | RADIOLOGY REPORT ---
EXAMINATION: XR PORTABLE CHEST CLINICAL INFORMATION: Thoracotomy. COMPARISON: X-ray of the chest performed 12/14/2016. TECHNIQUE: Portable view of the chest was obtained. FINDINGS: Unchanged positioning of the left apical and basilar chest tubes. Expected postoperative appearance status post thoracotomy and partial left lung resection. Opacity of the left midlung is unchanged. No pneumothorax or pleural effusion. Cardiomediastinal silhouette is unchanged. No acute osseous abnormality. IMPRESSION: Stable appearance with expected postoperative appearance status post partial left lung resection. Stable left midlung opacity adjacent to the surgical inna.
--- NOTE | 2016-12-15 20:34 | NUR ---
PT A/OX3, FOLLOWS COMMANDS. RATES SURGICAL INCISIONAL PAIN 5 OUT OF 10 AT PRESENT. ON MORPHINE DOUGHNUT MAKER. RT BREATH SOUNDS CLEAR, LT BREATH SOUNDS DIMINISHED THOUGHOUT. NO COUGH, SOB OR RESP DISTRESS NOTED AT PRESENT. [address]-POSITIVE AIR LEAK, DRAINING SEROSAGINIOUS DRAINAGE, NO CREPITUS NOTED. LT BACK DRESSING WITH BLOODY DRAINAGE. SEE FLOW SHEET FOR VS, 02 SATS, I/O'S. MONITOR SHOWS NSR, NO ECTOPY NOTED AT PRESENT. BP STABLE AT PRESENT. ABD SOFT, NONTENDER, NONDISTENDED, POSITIVE BOWEL SOUNDS. PARKINSON IN PLACE-DRAINING ADEQUATE AMT OF CLEAR YELLOW URINE. SKIN INTACT
[2016-12-16] VITALS: BP 121/58
[2016-12-16 04:00] VITALS: BP 127/68
[2016-12-16 05:44] LABS: ABSOLUTE BASOPHIL COUNT 0 /CUMM (0.0-0.2); ABSOLUTE EOSINOPHIL COUNT 0.1 /CUMM (0.0-0.7); ABSOLUTE GRANULOCYTE CT 7.5 /CUMM (1.4-6.5); ABSOLUTE LYMPH COUNT 0.7 /CUMM (1.2-3.4); ABSOLUTE MONOCYTE COUNT 0.4 /CUMM (0.10-0.60); BASOPHIL % 0.4 % (0.0-2.0); EOSINOPHIL % 1.2 % (0-5); GRANULOCYTE % 85.6 % (42.2-75.2); HEMATOCRIT 32.5 % (37-47); MEAN CORPUSCULAR HGB 30.5 PG (27.0-31.0); MEAN CORPUSCULAR HGB CONC 33.5 G/DL (33.0-37.0); MEAN CORPUSCULAR VOLUME 90.9 FL (81.0-99.0); MEAN PLATELET VOLUME 9.6 FL (7.4-10.4); PLATELET COUNT 238 /CUMM (130-400); RBC DISTRIBUTION WIDTH 13.9 % (11.5-14.5); RED BLOOD CELL CT 3.57 /CUMM (4.20-5.40); WHITE BLOOD CELL COUNT 8.7 /CUMM (4.8-10.8)
--- NOTE | 2016-12-16 06:02 | PN- Thoracic Surgery ---
Subjective Subjective: SITTING UP IN BED THIS MORNING C/O INSPIRATIONAL LEFT SIDED CP DENIES SUBSTERNAL CP, NO N+V WIT DIET POST CT REMOVED YESTERDAY O2 SATS SABLE OVERNIGHT Objective Vital Signs and I&Os Vital Signs Date Time Temp Pulse Resp B/P Pulse O2 O2 Flow FiO2 Ox Delivery Rate 12/16 0400 98.0 88 16 127/68 12/16 0400 99 Nasal 1.0L Cannula 12/16 0036 94 Nasal 1.0L Cannula 12/16 0000 99.2 85 20 121/58 12/16 0000 95 Nasal 1.0L Cannula 12/15 1999 98.5 84 14 135/60 12/15 2000 98 Nasal 1.0L Cannula 12/15 1800 98.9 86 17 115/53 12/15 1632 98 Nasal 2.0L Cannula 12/15 1600 99.1 77 28 112/62 12/15 1600 99.1 77 28 112/62 100 Nasal 2.0L Cannula 12/15 1600 96 Nasal 2.0L Cannula 12/15 1400 83 22 117/55 12/15 1200 98.4 92 20 110/60 12/15 1200 98 Nasal 2.0L Cannula 12/15 1000 79 20 111/51 12/15 0800 98.9 83 17 100/50 12/15 0800 99 Nasal 2.0L Cannula 12/15 0800 98.9 83 17 100/50 99 Nasal 2.0L Cannula 12/15 0758 100 Nasal 2.0L Cannula 12/15 0600 76 13 94/43 Intake & Output 12/16 0800 12/16 0000 12/15 1600 12/15 0800 12/15 0000 12/14 1600 Intake Total 720 1600 962 311 Output Total 329 410 275 681 Balance 391 1190 687 -370 Intake, IV 80 640 962 311 Intake, Oral 640 960 Number 0 0 0 0 Bowel Movements Output, Chest 70 110 176 Tube Drainage Output, Urine 259 300 275 505 Patient 155 lb Weight Physical Exam: CV: RRR LUNGS: CLEAR, MILD CRACKLES IN RIGHT BASE ABD: SOFT, +BS EXT; WARM, NO EDEMA DRSG DRY CT IN PLACE NAD SECURE PARKINSON: CLEAR URINE +AIR LEAK IN PLEUREVAC Assessment/Plan Assessment/Plan SURGICAL STABLE PLAN F/U AM CXR OOB TO CHAIR TODAY CONT CURRENT ICU ORDERS FOR NOW. WILL F/U WITH ATTENDING Core Measures/Miscellaneous Parkinson Catheter Date In: 12/14/16 Venous Thromboembolism VTE Risk Factors: Age > 40, Cancer/chemo/oth therapy, Surgery VTE Contraindications: No Contraindications VTE Prophylaxis Ordered Inpt: Mech & Pharm VTE Diagnosis: No VTE Type: NONE VTE Confirmed by (Test): NONE Beta Rachna Is Beta Rachna a Home Med? No Antibiotics Is Patient on Antibiotics? No
--- NOTE | 2016-12-16 06:41 | NUR ---
PT SLEPT MOST OF NIGHT. REMAINS A/OX3. RATING PAIN 4-6 OUT OF 10 FOR SHIFT. CONTINUES ON MORPHINE RIGGING ENGINEER. LT CHEST TUBE DRAINING SEROSAGINIOUS DRAINAGE, POSITIVE LARGE AIR LEAK, NO CREPITUS NOTED THOUGHOUT SHIFT. NO SOB OR RESP DISTRESS NOTED THOUGHOUT SHIFT. RT SIDE BREATH SOUNDS CLEAR, UPPER LT DIMINISHED, OTHERWISE CLEAR. MONITOR NSR, NO ECTOPY, HR-80'S-90'S FOR SHIFT. SBP-120'S-140'S FOR SHIFT. PARKINSON WITH GOOD URINE OUTPUT OF CLEAR YELLOW URINE. ABD SOFT, POSITIVE BOWEL SOUNDS. CHEST TUBE DRESSING C/D/I. LT UPPER BACK DRESSING WITH OLD BLOODY DRAINAGE. SKIN INTACT
[2016-12-16 08:00] VITALS: BP 140/80
--- NOTE | 2016-12-16 08:55 | PN- Resident CRCU ---
Subjective HPI/CRCU Issues: Patient denies to 4: Status post right upper lobe lobectomy for non-small cell carcinoma. Patient states that pain is under control, 4 out of 10 if she does not move. Reports that she is using her IS. Her vitals have remained stable overnight, she is satting well on 2 L O2 nasal cannula. Pending and a.m. chest x-ray. Objective Vital Signs & I&O Last 8 Hrs of Vitals and I&O: Vital Signs Date Time Temp Pulse Resp B/P Pulse O2 O2 Flow FiO2 Ox Delivery Rate 12/16 0800 99 Nasal 1.0L Cannula 12/16 0400 98.0 88 16 127/68 12/16 0400 99 Nasal 1.0L Cannula 12/16 0036 94 Nasal 1.0L Cannula 12/16 0000 99.2 85 20 121/58 12/16 0000 95 Nasal 1.0L Cannula 12/15 1999 98.5 84 14 135/60 12/15 2000 98 Nasal 1.0L Cannula 12/15 1800 98.9 86 17 115/53 12/15 1632 98 Nasal 2.0L Cannula 12/15 1600 99.1 77 28 112/62 12/15 1600 99.1 77 28 112/62 100 Nasal 2.0L Cannula 12/15 1600 96 Nasal 2.0L Cannula 12/15 1400 83 22 117/55 12/15 1200 98.4 92 20 110/60 12/15 1200 98 Nasal 2.0L Cannula 12/15 1000 79 20 111/51 Exam General Appearance: well developed/nourished, no apparent distress, alert, awake Head: atraumatic, normal appearance Ears, Nose, Throat: normal pharynx Neck: supple Respiratory: normal breath sounds, chest non-tender, no respiratory distress, still has bandage in her back with one chest tube in place Cardiovascular: regular rate/rhythm Gastrointestinal: soft, non-tender Palma Site: in place for strict I/O Nutrition Nutrition: P.O. diet Current Medications: Current Medications Sig/Lasha Start time Last Medication Dose Route Stop Time Status Admin Acetaminophen 1,000 MG Q6 12/14 1800 DC 12/15 IV 12/15 1759 1136 Albuterol Sulfate 3 ML Q4 12/14 2200 AC 12/16 INH 0519 Alendronate Sodium 70 MG QSUN 12/17 0700 AC PO Cholecalciferol 2,000 IU DAILY 12/15 1000 AC 12/15 PO 0902 Dextrose/Sodium 1,000 ML Q13H 12/15 1145 CAN Chloride IV Dextrose/Sodium 1,000 ML CONTINOUS INFUSION 12/14 2326 DC 12/15 Chloride IV 0606 Docusate Sodium 100 MG BID 12/14 2200 AC 12/15 PO 2122 Famotidine 20 MG BID 12/14 2200 AC 12/15 IV 2123 Heparin Sodium 5,000 UNIT Q8 12/15 0600 AC 12/16 (Porcine) SC 0656 Morphine Sulfate 100 MG Q24H PRN 12/14 1915 AC Sodium Chloride 48 ML IV Ondansetron HCl 4 MG Q6P PRN 12/14 1900 AC 12/16 IV 0447 Sertraline HCl 50 MG DAILY 12/15 1000 AC 12/15 PO 0902 Impression/Plan Impression/Problem List Impression: This is a 66-year-old female with past medical history of hyperparathyroidism status post partial parathyroidectomy, diverticulitis, osteoporosis, arthritis, depression, generalized anxiety, fibromyalgia who was recently hospitalized [place] for gallstone pancreatitis with subsequent cholecystectomy. At that time an irregular masslike opacification in the anterior segment of the left upper lobe was identified. Lesion was subsequently PET positive. On 12/14/2016 patient went for navigational bronchoscopy which identified non-small cell carcinoma in left upper lobe, she then had a VATS with wedge resection of the left upper lobe with positive margins which resulted in subsequent left upper lobectomy with lymph node biopsy. She had 2 chest tubes placed Patient is now transferred to ICU for closer monitoring with medicine consult onboard. PLAN Respiratory: She has left upper lobe resection for non-small cell lung cancer. This is postop day 2. Pt has continued to improve; hemodynamically stable. She is currently satting 98% on 2 L nasal cannula. * Pending chest x-ray this a.m. * Pain control with morphine COKEMAN * TRC with thoracotomy protocol * Strict I's and O's; Patient on Palma * Encourage IS * Pepcid for GI prophylaxis * Follow-up histopathology of lymph nodes ID: Patient is stable from ID perspective. Continue to monitor. She received antibiotics after surgery. Cardio: Patient is stable from a cardio perspective. Continue to monitor. Heme/Onc: Patient H&H this a.m. was 11 and 33. She has remained hemodynamically stable. We'll continue to monitor her. Musculoskeletal: * pt has hx of osteoporosis: Continue vitamin D and alendronate GI/ Nephro/Endo: Stable continue to monitor. Depression: Continue sertraline 50 mg daily Problem List: 1. S/P lobectomy of lung Pain Ratin Pain Location: back of l. chest Tomorrow's Labs & Rationales: icu bundle and cbc Plan DVT/Prophylaxis: mechanical, pharmacological
--- NOTE | 2016-12-16 10:06 | PN- CRCU ---
Subjective HPI/Critical Care Issues: Patient continues to have chest pain. Respiratory status is stable on room air. Chest continues with a air leak Objective Current Medications: Current Medications Sig/Lasha Start time Last Medication Dose Route Stop Time Status Admin Acetaminophen 1,000 MG Q6 12/14 1800 DC 12/15 IV 12/15 1759 1136 Albuterol Sulfate 3 ML Q4 12/14 2200 AC 12/16 INH 0945 Alendronate Sodium 70 MG QSUN 12/17 0700 AC PO Cholecalciferol 2,000 IU DAILY 12/15 1000 AC 12/15 PO 0902 Dextrose/Sodium 1,000 ML Q13H 12/15 1145 CAN Chloride IV Dextrose/Sodium 1,000 ML CONTINOUS INFUSION 12/14 2326 DC 12/15 Chloride IV 0606 Docusate Sodium 100 MG BID 12/14 2199 AC 12/15 PO 2122 Famotidine 20 MG BID 12/14 2200 AC 12/15 IV 2123 Heparin Sodium 5,000 UNIT Q8 12/15 0600 AC 12/16 (Porcine) SC 0656 Morphine Sulfate 100 MG Q24H PRN 12/14 1915 AC Sodium Chloride 48 ML IV Ondansetron HCl 4 MG Q6P PRN 12/14 1900 AC 12/16 IV 0447 Sertraline HCl 50 MG DAILY 12/15 1000 AC 12/15 PO 0902 Vital Signs & I&O Last 24 Hrs of Vitals and I&O: Vital Signs Date Time Temp Pulse Resp B/P Pulse O2 O2 Flow FiO2 Ox Delivery Rate 12/16 0800 97.8 84 16 140/80 12/16 0800 99 Nasal 1.0L Cannula 12/16 0400 98.0 88 16 127/68 12/16 0400 99 Nasal 1.0L Cannula 12/16 0036 94 Nasal 1.0L Cannula 12/16 0000 99.2 85 20 121/58 12/16 0000 95 Nasal 1.0L Cannula 12/15 2000 98.5 84 14 135/60 12/15 1999 98 Nasal 1.0L Cannula 12/15 1800 98.9 86 17 115/53 12/15 1632 98 Nasal 2.0L Cannula 12/15 1600 99.1 77 28 112/62 12/15 1600 99.1 77 28 112/62 100 Nasal 2.0L Cannula 12/15 1600 96 Nasal 2.0L Cannula 01/20 1400 83 22 117/55 12/15 1200 98.4 92 20 110/60 12/15 1200 98 Nasal 2.0L Cannula Intake & Output 12/16 1600 12/16 0800 12/16 0000 Intake Total 197 720 Output Total 1020 329 Balance -823 391 Intake, IV 77 80 Intake, Oral 120 640 Number 0 0 Bowel Movements Output, Chest 70 Tube Drainage Output, Urine 1020 259 Since saturation on room air is 94% exam for chest shows diminished breath sounds cardiac exam shows regular S1 and S2 without murmurs Impression/Plan Impression/Plan Impression/Plan: 66-year-old status post sectional thoracic surgery has persistent air leak. Estrace status is otherwise stable on room air Recommendations: Further management of chest tube per CT surgery, continue IST mobilized out of bed
[2016-12-16 11:00] VITALS: BP 135/59
--- NOTE | 2016-12-16 11:28 | RADIOLOGY REPORT ---
EXAMINATION: XR PORTABLE CHEST CLINICAL INFORMATION: Status post left wedge resection (requisition erroneously states status post right wedge resection). COMPARISON: Several prior chest x-rays, most recent of which is dated 12/15/2016. TECHNIQUE: AP erect portable view of the chest was obtained. FINDINGS: No change in positioning of left-sided chest tube directed towards the medial left lung apex. Second chest tube previously seen extending into the medial left lung base has been removed. No pneumothorax. Postoperative changes are seen in the left upper lung and left hilar region with paramediastinal and left midlung opacities seen, unchanged. Compared to prior exam, lower lung volumes are noted with bibasilar opacities, likely representing subsegmental atelectasis. No suspicious bone findings. IMPRESSION: 1. Interval removal of the chest tube in the left lung base. No change in positioning of left apical chest tube. No pneumothorax. 2. Stable postoperative changes in the left hilar and mid lung. 3. Low lung volumes with increasing bibasilar opacities, consistent with subsegmental atelectasis.
--- NOTE | 2016-12-16 13:28 | NUR ---
PATIENT OOB TO CHAIR AT 1100 TO 1310 APPX. 1/2 HOUR AFTER PATIENT FINISHED HER LUNCH STILL SITTING IN CHAIR (3P. PIZZA,1/2 CUP SOUP,APPLE JUICE) C/O OF NAUSEA, ZOFRAN GIVEN PER EMAR AMBULATED PATIENT BACK TO BED, 200MLS VOMIT, NOTIFIED GOLD MORLEY NO INTERVENTIONS NEEDED AT THIS TIME
--- NOTE | 2016-12-16 17:44 | RADIOLOGY REPORT ---
EXAMINATION: XR PORTABLE CHEST CLINICAL INFORMATION: Status post thoracotomy with chest tube. Air leak. COMPARISON: Chest x-ray 12/16/2016, 6:54 AM TECHNIQUE: Portable chest 12/16/2016, 4:48 PM FINDINGS: Surgical suture line along the left hilum to the lung apex. There is a left-sided chest tube in place. Catheter tip is at the apex of the left hemithorax. There is a left apical pneumothorax. Pneumothorax is about 20% in volume. This has developed since prior exam this a.m. Date opacity over the left midlung is persistent. The right lung is clear. IMPRESSION: Approximately 20% left-sided pneumothorax. This critical result was discussed with MD Mikhail on 12/16/2016, 5:40 PM and it was ascertained that the content and urgency of the report was understood at the time of direct communication.
--- NOTE | 2016-12-16 22:41 | NUR ---
OOB TO COMMODE X 2 STEADY ON FEET VOIDS LG AMTS CL YELLOW URINE. CHEST TUBE TO WATER SEAL. O2 SAT 94% ON R/A. NO FURTHER C/O NAUSEA.
[2016-12-17 05:15] LABS: ABSOLUTE BASOPHIL COUNT 0 /CUMM (0.0-0.2); ABSOLUTE EOSINOPHIL COUNT 0.2 /CUMM (0.0-0.7); ABSOLUTE GRANULOCYTE CT 5.6 /CUMM (1.4-6.5); ABSOLUTE LYMPH COUNT 0.5 /CUMM (1.2-3.4); ABSOLUTE MONOCYTE COUNT 0.3 /CUMM (0.10-0.60); BASOPHIL % 0.5 % (0.0-2.0); EOSINOPHIL % 2.9 % (0-5); GRANULOCYTE % 84.6 % (42.2-75.2); HEMATOCRIT 31.7 % (37-47); MEAN CORPUSCULAR HGB 30.5 PG (27.0-31.0); MEAN CORPUSCULAR HGB CONC 33.5 G/DL (33.0-37.0); MEAN CORPUSCULAR VOLUME 91.1 FL (81.0-99.0); MEAN PLATELET VOLUME 9.8 FL (7.4-10.4); PLATELET COUNT 207 /CUMM (130-400); RBC DISTRIBUTION WIDTH 14.1 % (11.5-14.5); RED BLOOD CELL CT 3.48 /CUMM (4.20-5.40)
--- NOTE | 2016-12-17 06:07 | PN- Thoracic Surgery ---
Subjective Subjective: CT was placed to water seal yesterday morning. Late afternoon CXR revealed a 20% ptx, which was not surprising given air leak. She remained clinically stable, however, with sats above 93% on RA all day. 1L of intermittent O2 was used during nausea episodes only. Otherwise, she had interrmittent nausea throughout the day, which improved with antiemetics and slight diet regression. She tolerated mostly clears for dinner, but nausea recurred overnight upon standing to go to the bathroom. Palma catheter is out. She is voiding spontaneously. Still no flatus or BM. C/o pain at the CT site as expected. She has been OOB to chair and ambulates to the bathroom with assistance. Objective Vital Signs and I&Os Vital Signs Date Time Temp Pulse Resp B/P Pulse O2 O2 Flow FiO2 Ox Delivery Rate 12/17 0357 93 Room Air 12/17 0125 93 Room Air 12/17 0000 92 Room Air 12/16 2000 94 Room Air 12/16 1600 93 Room Air 12/16 1200 94 Room Air 12/16 1100 97 22 135/59 12/16 1100 94 Room Air Room Air 12/16 0800 97.8 84 16 140/80 12/16 0800 99 Nasal 1.0L Cannula Intake & Output 12/17 0800 12/17 0000 12/16 1600 12/16 0800 12/16 0000 12/15 1600 Intake Total 620 890 564 029 2009 Output Total 7841 496 9294 329 410 Balance -1260 90 -536 032 9025 Intake, IV 50 50 77 80 640 Intake, Oral 570 840 120 640 960 Number 0 0 0 0 Bowel Movements Output, Chest 30 150 70 110 Tube Drainage Output, 200 Emesis Output, Urine 6754 017 3658 259 300 Patient 155 lb Weight Physical Exam: General: Patient is resting, but easily arousable. Cardiac: Regular lung Pulmonary: Distant breath sounds are noted particularly at the left apex. Poor inspiratory effort and low lung volumes due to pain. The surgical incision and chest tube sites contain a small amount of drainage, but relatively unchanged versus yesterday. There is some mild fullness under the incision site, some of which represents eversion of the closure and some of which may be a small hematoma, but it is unchanged as well. + Air leak with cough. Abdomen: Soft, only mildly distended. No bowel sounds were heard this morning. Extremities: Alps arm place to bilateral lower extremities. There is no calf tenderness or edema of the lower extremities bilaterally. Assessment/Plan Assessment/Plan Patient is a 66-year-old female with medical history significant for depression, who is now postoperative day #3 status post VATS wedge resection, resulting in positive margins on frozen section, and subsequent conversion to left upper lobectomy. She has one chest tube remaining, which is on waterseal. She has a known 20% pneumothorax, but remains clinically stable on room air. Plan: -Keep chest tubes in place to water seal as long as patient remains clinically stable. Follow-up chest x-ray this morning. Continue to monitor outputs. -Continue pain control oral Percocet and intermittent morphine as needed -I recommended ordering only minimal clear liquids, until nausea completely resolved. -Encourage incentive spirometer and deep breathing. TRC's. -Antibiotic prophylaxis is complete. -Subcutaneous heparin and Alps for DVT prophylaxis. -Pepcid for GI prophylaxis. -Colace twice a day for bowel regimen. -Medical management per critical care team. Appreciate input. -Continue to monitor closely. -Will discuss with attending. Core Measures/Miscellaneous Palma Catheter Date In: 12/14/16 Venous Thromboembolism VTE Risk Factors: Age > 40, Cancer/chemo/oth therapy, Surgery VTE Contraindications: No Contraindications VTE Prophylaxis Ordered Inpt: Mech & Pharm VTE Diagnosis: No VTE Type: NONE VTE Confirmed by (Test): NONE Beta Rachna Is Beta Rachna a Home Med? No Antibiotics Is Patient on Antibiotics? No
[2016-12-17 06:09] LABS: WHITE BLOOD CELL COUNT 6.6 /CUMM (4.8-10.8)
[2016-12-17 08:00] VITALS: BP 136/74
--- NOTE | 2016-12-17 08:39 | PN- Resident CRCU ---
Subjective HPI/CRCU Issues: Patient in ICU for: Postop day 3 status post right upper lobe lobectomy for non- small cell cancer. Patient still has mild chest pain where the tube is inserted. Up to now the chest tube put out 700 mL. She is saturating well on room air. Patient still complaining of mild cough. She denies fever, chills, palpitation, abdominal pain, nausea or vomiting Objective Vital Signs & I&O Last 8 Hrs of Vitals and I&O: Intake & Output 12/17 1600 Intake Total 720 Output Total 1060 Balance -340 Intake, Oral 720 Output, Chest 10 Tube Drainage Output, Urine 1050 Exam General Appearance: well developed/nourished, no apparent distress, alert, awake , comfortable Head: atraumatic, normal appearance Respiratory: chest non-tender (except around chest tube), no respiratory distress, decrease air entry because patient afraid to take deep breaths to avoid pain Cardiovascular: regular rate/rhythm, no lower extremity edema Gastrointestinal: normal bowel sounds, soft, non-tender Extremities: normal inspection, no edema Current Medications: Current Medications Sig/Lasha Start time Last Medication Dose Route Stop Time Status Admin Albuterol Sulfate 3 ML Q4 12/14 2200 AC 12/17 INH 1248 Alendronate Sodium 70 MG QSUN 12/17 0700 AC 12/17 PO 0623 Cholecalciferol 2,000 IU DAILY 12/15 1000 AC 12/17 PO 0928 Docusate Sodium 100 MG BID 12/17 2200 AC PO Docusate Sodium 100 MG BID 12/14 2200 DC 12/17 PO 0928 Famotidine 20 MG BID 12/14 2200 AC 12/17 IV 0928 Heparin Sodium 5,000 UNIT Q8 12/15 0600 AC 12/17 (Porcine) SC 1409 Morphine Sulfate 4 MG Q4P PRN 12/16 1030 AC IV Ondansetron HCl 4 MG Q6P PRN 12/14 1900 AC 12/16 IV 1301 Oxycodone/ 1 TAB ONCE ONE 12/17 1015 DC 12/17 Acetaminophen PO 12/17 1016 1021 Oxycodone/ 1 TAB Q4P PRN 12/16 1030 AC 12/17 Acetaminophen PO 1520 Oxycodone/ 2 TAB Q4P PRN 12/16 1030 AC Acetaminophen PO Promethazine HCl 12.5 MG Q8P PRN 12/16 1715 AC 12/17 IV 12/23 1714 0144 Sertraline HCl 50 MG DAILY 12/15 1000 AC 12/17 PO 0928 Impression/Plan Impression/Problem List Impression: Impression/Problem List Impression: This is a 66-year-old female with past medical history of hyperparathyroidism status post partial parathyroidectomy, diverticulitis, osteoporosis, arthritis, depression, generalized anxiety, fibromyalgia who was recently hospitalized [facility] for gallstone pancreatitis with subsequent cholecystectomy. At that time an irregular masslike opacification in the anterior segment of the left upper lobe was identified. Lesion was subsequently PET positive. On 12/14/2016 patient went for navigational bronchoscopy which identified non-small cell carcinoma in left upper lobe, she then had a VATS with wedge resection of the left upper lobe with positive margins which resulted in subsequent left upper lobectomy with lymph node biopsy. She had 2 chest tubes placed Patient is now transferred to ICU for closer monitoring with medicine consult onboard. PLAN Respiratory: She has left upper lobe resection for non-small cell lung cancer. This is postop day 3. Pt has continued to improve; hemodynamically stable. She is currently satting upper 90s on room air * chest x-ray tomorrow a.m. * Pain control with Percocet and morphine when necessary * TRC with thoracotomy protocol * Pepcid for GI prophylaxis * Follow-up histopathology of lymph nodes ID: Patient is stable from ID perspective. Continue to monitor. She received antibiotics after surgery. Cardio: Patient is stable from a cardio perspective. Continue to monitor. Heme/Onc: Patient H&H this a.m. was 10.6 and 31.7. Which is mildly lower than yesterday and the day before * Continue to repeat CBC Musculoskeletal: * pt has hx of osteoporosis: Continue vitamin D and alendronate GI/ Nephro/Endo: Stable continue to monitor. Depression: Continue sertraline 50 mg daily Diet regular diet DVT prophylaxis heparin subcutaneous CODE STATUS full code Problem List: 1. S/P lobectomy of lung Pain Ratin Pain Location: Back of the chest Tomorrow's Labs & Rationales: CBC and ICU bundle Plan DVT/Prophylaxis: mechanical, pharmacological
--- NOTE | 2016-12-17 09:31 | RADIOLOGY REPORT ---
EXAMINATION: XR PORTABLE CHEST CLINICAL INFORMATION: Follow-up pneumothorax; prior thoracotomy. COMPARISON: Prior chest radiograph, most recently 12/16/2016. TECHNIQUE: Portable view of the chest was obtained. FINDINGS: The heart, great vessels, pulmonary vasculature mediastinum are stable. There are stable left thoracic postoperative changes, and there is stable positioning of a left thoracostomy tube. There is a slightly diminished left pneumothorax, size approaching 10%. There is a stable left perihilar opacity. The right lung field appears relatively clear. There is no acute osseous abnormality. IMPRESSION: There is a slightly diminished left pneumothorax, measuring approximately 10%. A left thoracostomy tube is unchanged position. There are stable left thoracic postoperative changes, with stable left perihilar density.
--- NOTE | 2016-12-17 10:32 | PN- Pulmonary ---
Subjective HPI/Critical Care Issues: Patient remains comfortable on room air but continues to have left chest pain a persistent air leak Objective Current Medications: Current Medications Sig/Lasha Start time Last Medication Dose Route Stop Time Status Admin Albuterol Sulfate 3 ML Q4 12/14 2199 AC 12/17 INH 0842 Alendronate Sodium 70 MG QSUN 12/17 0700 AC 12/17 PO 0623 Cholecalciferol 2,000 IU DAILY 12/15 1000 AC 12/17 PO 0928 Docusate Sodium 100 MG BID 12/14 2199 AC 12/17 PO 0928 Famotidine 20 MG BID 12/14 2200 AC 12/17 IV 0928 Heparin Sodium 5,000 UNIT Q8 12/15 0600 AC 12/17 (Porcine) SC 0623 Morphine Sulfate 4 MG Q4P PRN 12/16 1030 AC IV Ondansetron HCl 4 MG Q6P PRN 12/14 1900 AC 12/16 IV 1301 Oxycodone/ 1 TAB ONCE ONE 12/17 1015 DC 12/17 Acetaminophen PO 12/17 1016 1021 Oxycodone/ 1 TAB Q4P PRN 12/16 1030 AC 12/17 Acetaminophen PO 0927 Oxycodone/ 2 TAB Q4P PRN 12/16 1030 AC Acetaminophen PO Promethazine HCl 12.5 MG Q8P PRN 12/16 1715 AC 12/17 IV 12/23 1714 0144 Sertraline HCl 50 MG DAILY 12/15 1000 AC 12/17 PO 0928 Vital Signs & I&O Last 24 Hrs of Vitals and I&O: Vital Signs Date Time Temp Pulse Resp B/P Pulse O2 O2 Flow FiO2 Ox Delivery Rate 12/17 0845 94 Room Air 12/17 0800 98.1 98 20 136/74 93 Room Air 12/17 0800 93 Room Air 12/17 0357 93 Room Air 12/17 0125 93 Room Air 12/17 0000 92 Room Air 12/16 2000 94 Room Air 12/16 1600 93 Room Air 12/16 1200 94 Room Air 12/16 1100 97 22 135/59 12/16 1100 94 Room Air Room Air Intake & Output 12/17 1600 12/17 0800 12/17 0000 Intake Total 250 620 Output Total 1180 1880 Balance -930 -1260 Intake, IV 50 Intake, Oral 250 570 Output, Chest 30 30 Tube Drainage Output, Urine 1150 1850 Oxygen saturation on room air is 94-95% exam for chest shows somewhat diminished breath sounds over the left chest appears to be a left chest wall hematoma with significant posterior chest wall swelling. Note there's been a significant decrease in hematocrit Impression/Plan Impression/Plan Impression/Plan: 66-year-old status post sectional thoracic surgery has persistent air leak. Respiratory status is otherwise stable on room air. Concern is raised over a possible incisional hematoma with acute blood loss anemia will require surgical follow-up. Recommendations: Further management of chest tube per CT surgery, continue IST mobilized out of bed. Adjust pain control follow-up CBCs and CT surgery evaluation of possible chest wall hematoma
--- NOTE | 2016-12-17 11:28 | NUR ---
Patient is alert and oriented x's 3, able to follow commands and respond appropriately. NSR-ST on tele monitor, HR= 80-100's. SBP: 110-130's and pt denies chest pain. On room air lungs are diminished- O2 sat 93%. Left anterior chest tube in place to water seal with serosangenous output. Dressing to insertion site was reinforced. Abdomen is soft with + bowel sounds. Denies nausea at this time and was able to tolerate breakfast. OOB with minimal assistance to the chair and is ambulating in the room. No edema or areas of pressure injury are noted. Medicated with percocet for pain with good relief. Vitals currently stable. Will continue to closely monitor patient.
[2016-12-17 16:00] VITALS: BP 116/60
[2016-12-18] VITALS: BP 142/80
--- NOTE | 2016-12-18 05:40 | PN- Thoracic Surgery ---
Subjective Subjective: No acute events overnight. No new c/o. Pain controlled. Patient felt somewhat anxious yesterday but feels better. Chest tube remains on water seal. No changes in breathing from yesterday. Tolerating diet, no n/v. +flatus. OOB to chair. Denies new CP. Objective Vital Signs and I&Os Vital Signs Date Time Temp Pulse Resp B/P Pulse O2 O2 Flow FiO2 Ox Delivery Rate 12/18 0415 93 Room Air 12/18 0118 93 Room Air 12/18 0015 92 Room Air 12/18 0000 97.8 80 12 142/80 92 Room Air 12/17 1956 96 Room Air 12/17 1708 92 Room Air 12/17 1600 94 Room Air 12/17 1600 98.7 92 18 116/60 96 Room Air 12/17 1200 93 Room Air 12/17 0845 94 Room Air 12/17 0800 98.1 98 20 136/74 93 Room Air 12/17 0800 93 Room Air Intake & Output 12/18 0800 12/18 0000 12/17 1600 12/17 0800 12/17 0000 12/16 1600 Intake Total 760 720 250 620 890 Output Total 1000 1060 1180 1880 800 Balance -240 -340 -930 -1260 90 Intake, IV 50 50 Intake, Oral 760 720 250 570 840 Number 0 Bowel Movements Output, Chest 10 30 30 150 Tube Drainage Output, 200 Emesis Output, Urine 1000 1050 1150 1850 450 Patient 155 lb Weight Physical Exam: General: NAD, comfortable, A&Ox3 Chest: Decreased breathsouds throughout left chest. Left chest tube in place with +air leak. Left chest incision c/d/i. Heart S1S2 normal. Abdomen: soft, nontender, nondistended. Ext: No calve swelling/TTP, neurovascularly intact bilateral lower extremities Current Medications: Current Medications Sig/Lasha Start time Last Medication Dose Route Stop Time Status Admin Albuterol Sulfate 3 ML Q4 12/14 2199 AC 12/18 INH 0440 Alendronate Sodium 70 MG QSUN 12/17 0700 AC 12/17 PO 0623 Cholecalciferol 2,000 IU DAILY 12/15 1000 AC 12/17 PO 0928 Docusate Sodium 100 MG BID 12/17 2199 AC 12/17 PO 2311 Docusate Sodium 100 MG BID 12/14 220 DC 12/17 PO 0928 Famotidine 20 MG BID 12/14 2200 AC 12/17 IV 2312 Heparin Sodium 5,000 UNIT Q8 12/15 0600 AC 12/17 (Porcine) SC 2312 Lorazepam 0.5 MG ONCE ONE 12/17 1800 DC 12/17 PO 12/17 1801 1755 Morphine Sulfate 4 MG Q4P PRN 12/16 1030 AC IV Ondansetron HCl 4 MG Q6P PRN 12/14 1900 AC 12/16 IV 1301 Oxycodone/ 1 TAB ONCE ONE 12/17 1015 DC 12/17 Acetaminophen PO 12/17 1016 1021 Oxycodone/ 1 TAB Q4P PRN 12/16 1030 AC 12/17 Acetaminophen PO 2311 Oxycodone/ 2 TAB Q4P PRN 12/16 1030 AC 12/17 Acetaminophen PO 1900 Promethazine HCl 12.5 MG Q8P PRN 12/16 1715 AC 12/17 IV 12/23 171 0144 Sertraline HCl 50 MG DAILY 12/15 1000 AC 12/17 PO 09 Results Last 48 Hours of Labs: Laboratory Tests 12/17 12/17 0640 0415 Chemistry Sodium (137 - 145 mmol/L) 139 Potassium (3.5 - 5.1 mmol/L) 3.9 Chloride (98 - 107 mmol/L) 102 Carbon Dioxide (22 - 30 mmol/L) 30 Anion Gap (5 - 16) 7 BUN (7 - 17 mg/dL) 7 Creatinine (0.5 - 1.0 mg/dL) 0.5 Estimated GFR (>60 ml/min) > 60 Glucose (65 - 99 mg/dL) 101 H Calcium (8.4 - 10.2 mg/dL) 8.4 Phosphorus (2.5 - 4.5 mg/dL) 2.9 Magnesium (1.6 - 2.3 mg/dL) 2.1 Total Bilirubin (0.2 - 1.3 mg/dL) 0.5 AST (14 - 36 U/L) 30 ALT (9 - 52 U/L) 27 Albumin (3.5 - 5.0 g/dL) 3.5 Hematology CBC w Diff NO MAN DIFF REQ WBC (4.8 - 10.8 /CUMM) 6.6 RBC (4.20 - 5.40 /CUMM) 3.48 L Hgb (12.0 - 16.0 G/DL) 10.6 L Hct (37 - 47 %) 31.7 L MCV (81.0 - 99.0 FL) 91.1 MCH (27.0 - 31.0 PG) 30.5 RDW (11.5 - 14.5 %) 14.1 Plt Count (130 - 400 /CUMM) 207 MPV (7.4 - 10.4 FL) 9.8 Gran % (42.2 - 75.2 %) 84.6 H Lymphocytes % (20.5 - 51.1 %) 7.7 L Monocytes % (1.7 - 9.3 %) 4.3 Eosinophils % (0 - 5 %) 2.9 Basophils % (0.0 - 2.0 %) 0.5 Absolute Granulocytes (1.4 - 6.5 /CUMM) 5.6 Absolute Lymphocytes (1.2 - 3.4 /CUMM) 0.5 L Absolute Monocytes (0.10 - 0.60 /CUMM) 0.3 Absolute Eosinophils (0.0 - 0.7 /CUMM) 0.2 Absolute Basophils (0.0 - 0.2 /CUMM) 0 PUBS MCHC (33.0 - 37.0 G/DL) 33.5 Assessment/Plan Assessment/Plan 66yo F POD#3 s/p VATS left upper lobectomy. AVSS. Anterior chest tube remains in place with +air leak. Plan: -Keep chest tube to water seal -f/u CXR -Continue pain control -Encourage incentive spirometer and deep breathing. TRC's. -Subcutaneous heparin and Alps for DVT prophylaxis. -Pepcid for GI prophylaxis. -bowel regimen. -OOB to chair -Medical management per critical care team. Appreciate input. -Continue to monitor closely. -Will discuss with attending. Core Measures/Miscellaneous Palma Catheter Date In: 12/14/16 Venous Thromboembolism VTE Risk Factors: Age > 40, Cancer/chemo/oth therapy, Surgery VTE Contraindications: No Contraindications VTE Prophylaxis Ordered Inpt: Mech & Pharm VTE Diagnosis: No VTE Type: NONE VTE Confirmed by (Test): NONE Beta Rachna Is Beta Rachna a Home Med? No Antibiotics Is Patient on Antibiotics? No
[2016-12-18 05:55] LABS: ABSOLUTE BASOPHIL COUNT 0 /CUMM (0.0-0.2); ABSOLUTE EOSINOPHIL COUNT 0.6 /CUMM (0.0-0.7); ABSOLUTE GRANULOCYTE CT 3.5 /CUMM (1.4-6.5); ABSOLUTE LYMPH COUNT 1.1 /CUMM (1.2-3.4); ABSOLUTE MONOCYTE COUNT 0.3 /CUMM (0.10-0.60); BASOPHIL % 0.6 % (0.0-2.0); EOSINOPHIL % 10.4 % (0-5); GRANULOCYTE % 62.8 % (42.2-75.2); HEMATOCRIT 31.7 % (37-47); MEAN CORPUSCULAR HGB 30.4 PG (27.0-31.0); MEAN CORPUSCULAR HGB CONC 33.3 G/DL (33.0-37.0); MEAN CORPUSCULAR VOLUME 91.3 FL (81.0-99.0); MEAN PLATELET VOLUME 8.8 FL (7.4-10.4); PLATELET COUNT 244 /CUMM (130-400); RBC DISTRIBUTION WIDTH 14.4 % (11.5-14.5); RED BLOOD CELL CT 3.47 /CUMM (4.20-5.40); WHITE BLOOD CELL COUNT 5.6 /CUMM (4.8-10.8)
[2016-12-18 08:00] VITALS: BP 130/88
--- NOTE | 2016-12-18 08:35 | RADIOLOGY REPORT ---
EXAMINATION: XR PORTABLE CHEST CLINICAL INFORMATION: Chest tube. Assess for change. COMPARISON: Several prior chest x-rays, most recent of which is dated 12/17/2016. TECHNIQUE: AP semierect portable view of the chest was obtained. FINDINGS: A left-sided chest tube is seen directed towards the left lung apex, unchanged in position. There is a trace residual left-sided pneumothorax, decreased compared to the prior exam. Small amounts of subcutaneous emphysema is also seen, unchanged, collecting along the lateral lower left chest wall. The right lung shows no pneumothorax. Overall, low lung volumes are seen. There is continued left mid lung parenchymal opacities seen, unchanged from prior exam. Mild bibasilar subsegmental atelectasis is also unchanged. Mild biapical pleural thickening is noted. Bony structures are unremarkable. IMPRESSION: 1. Further decrease in size of left-sided pneumothorax with only a trace pneumothorax remaining area. 2. No change in positioning of left-sided chest tube or in the small amount of subcutaneous emphysema along the lower lateral left chest wall. 3. No change in left midlung opacity. 4. No change in mild bibasilar subsegmental atelectasis.
--- NOTE | 2016-12-18 09:50 | PN- CRCU ---
Subjective HPI/Critical Care Issues: pt seen and examined afebrile hemodynamically stable pain improved chest tube remains decreased left sided ptx Objective Current Medications: Current Medications Sig/Lasha Start time Last Medication Dose Route Stop Time Status Admin Albuterol Sulfate 3 ML Q4 12/14 2200 AC 12/18 INH 0831 Alendronate Sodium 70 MG QSUN 12/17 0700 AC 12/17 PO 0623 Cholecalciferol 2,000 IU DAILY 12/15 1000 AC 12/17 PO 0928 Docusate Sodium 100 MG BID 12/17 220 AC 12/17 PO 2311 Docusate Sodium 100 MG BID 12/14 2200 DC 12/17 PO 0928 Famotidine 20 MG BID 12/14 2200 AC 12/17 IV 2312 Heparin Sodium 5,000 UNIT Q8 12/15 0600 AC 12/18 (Porcine) SC 0555 Lorazepam 0.5 MG Q8P PRN 12/18 0600 AC 12/18 PO 12/25 0559 0604 Lorazepam 0.5 MG ONCE ONE 12/17 1800 DC 12/17 PO 12/17 1801 1755 Morphine Sulfate 4 MG Q4P PRN 12/16 1030 AC IV Ondansetron HCl 4 MG Q6P PRN 12/14 1900 AC 12/16 IV 1301 Oxycodone/ 1 TAB ONCE ONE 12/17 1015 DC 12/17 Acetaminophen PO 12/17 1016 1021 Oxycodone/ 1 TAB Q4P PRN 12/16 1030 AC 12/18 Acetaminophen PO 0933 Oxycodone/ 2 TAB Q4P PRN 12/16 1030 AC 12/17 Acetaminophen PO 1900 Promethazine HCl 12.5 MG Q8P PRN 12/16 1715 AC 12/17 IV 12/23 1714 0144 Sertraline HCl 50 MG DAILY 12/15 1000 AC 12/17 PO 0928 Vital Signs & I&O Last 24 Hrs of Vitals and I&O: Vital Signs Date Time Temp Pulse Resp B/P Pulse O2 O2 Flow FiO2 Ox Delivery Rate 12/18 0834 97 Room Air Room Air 12/18 0415 93 Room Air 12/18 0118 93 Room Air 12/18 0015 92 Room Air 12/18 0000 97.8 80 12 142/80 92 Room Air 12/17 1956 96 Room Air 12/17 1708 92 Room Air 12/17 1600 94 Room Air 12/17 1600 98.7 92 18 116/60 96 Room Air 12/17 1200 93 Room Air Intake & Output 12/18 1600 12/18 0800 12/18 0000 Intake Total 600 760 Output Total 970 1000 Balance -370 -240 Intake, Oral 600 760 Output, Chest 70 Tube Drainage Output, Urine 900 1000 Exam Other Physical Findings: General - Alert, awake and oriented HEENT - normocephalic, atraumatic Cardiovascular - S1, S2 Lungs - rare rhonchi, chest tube in place Abdomen - soft, bowel sounds positive, no tenderness Extremities - without edema or cyanosis Results Last 24 Hrs of Lab Results: Laboratory Tests 12/18/16 0535: CBC w Diff NO MAN DIFF REQ, RBC 3.47 L, MCV 91.3, MCH 30.4, RDW 14.4, MPV 8.8, Gran % 62.8, Lymphocytes % 20.2 L, Monocytes % 6.0, Eosinophils % 10.4 H, Basophils % 0.6, Absolute Granulocytes 3.5, Absolute Lymphocytes 1.1 L, Absolute Monocytes 0.3, Absolute Eosinophils 0.6, Absolute Basophils 0, PUBS MCHC 33.3 Impression/Plan Impression/Plan Impression/Plan: Impression 66-year-old woman with a cholecystectomy November with an incidental finding of a left upper lobe mass. Lesion was a regular in the left upper lobe and PET positive. Patient underwent navigational bronchoscopy with thinking followed by resection of mass consistent with carcinoma and has followed by lobectomy. Plan - Pain control - Post thoracotomy protocol with TRC - Chest tube output and monitoring per cardiothoracic surgery - Strict ins and outs measurements - Monitor blood work and electrolytes - DVT prophylaxis at all times TTS 35 min
--- NOTE | 2016-12-18 13:11 | NUR ---
Patient is alert and oriented x's 3, able to follow commands and respond appropriately. Has been downgraded to a GEN MED hold but to remain in the ICU. Vitals currently stable. On room air- lungs clear and diminished to the left side. Anterior chest tube remains in place with a small air leak- O2 sat stable at 94-96%. Dressing is intact with scant amounts of serosangenous drainage- Abdomen is soft with + bowel sounds, tolerating po well with no c/o of nausea. Voiding clear yellow urine on BSC. No areas of pressure injury are currently noted. Medicated with po percocet for pain with good relief. She ambulated down the harden with indep with supervision. Vitals stable- will continue to closely monitor patient.
--- NOTE | 2016-12-18 13:20 | PN- Housestaff ---
Subjective Follow-up For: CHEST TUBE Tele-Events Since Last Visit: NSR Subjective: Saw patient at bedside this a.m. She stated she felt much better and indeed seemed to be in better spirits. Her was talking to her at bedside. She has one chest tube remaining on water seal. She says her pain is better controlled. No acute overnight events Review of Systems Constitutional: Denies: chills, diaphoresis, fever, weakness. EENTM: Reports: blurred vision. Cardiovascular: Denies: chest pain, orthopena, palpitations. Respiratory: Denies: cough, short of breath. Gastrointestinal: Denies: bloating, constipation. Genitourinary: Denies: dysuria, frequency, hematuria. Musculoskeletal: Denies: back pain, joint swelling. Skin: Reports: no symptoms. Objective Last 24 Hrs of Vital Signs/I&O Vital Signs Date Time Temp Pulse Resp B/P Pulse O2 O2 Flow FiO2 Ox Delivery Rate 12/18 0834 97 Room Air Room Air 12/18 0800 98.6 89 20 130/88 93 Room Air 12/18 0800 93 Room Air 12/18 0415 93 Room Air 12/18 0118 93 Room Air 12/18 0015 92 Room Air 12/18 0000 97.8 80 12 142/80 92 Room Air 12/17 1956 96 Room Air 12/17 1708 92 Room Air 12/17 1600 94 Room Air 12/17 1600 98.7 92 18 116/60 96 Room Air Intake & Output 12/18 1600 12/18 0800 12/18 0000 Intake Total 600 760 Output Total 970 1000 Balance -370 -240 Intake, Oral 600 760 Output, Chest 70 Tube Drainage Output, Urine 900 1000 Physical Exam General Appearance: Alert, Oriented X3, Cooperative, No Acute Distress Skin: No Rashes, No Breakdown HEENT: Atraumatic, PERRLA, EOMI Neck: Supple Cardiovascular: Regular Rate, Normal S1, Normal S2 Lungs: Clear to Auscultation, has chest tubei n. Bandage in back. Pt taking shallow breaths. No wheezes or crackles Abdomen: Soft, No Tenderness Neurological: Normal Gait Current Medications: Current Medications Sig/Lasha Start time Last Medication Dose Route Stop Time Status Admin Albuterol Sulfate 3 ML Q4 12/14 2200 AC 12/18 INH 1216 Alendronate Sodium 70 MG QSUN 12/17 0700 AC 12/17 PO 0623 Cholecalciferol 2,000 IU DAILY 12/15 1000 AC 12/18 PO 1129 Docusate Sodium 100 MG BID 12/17 2200 AC 12/18 PO 1129 Docusate Sodium 100 MG BID 12/14 2200 DC 12/17 PO 0928 Famotidine 20 MG BID 12/14 2200 AC 12/18 IV 1130 Heparin Sodium 5,000 UNIT Q8 12/15 0600 AC 12/18 (Porcine) SC 0555 Lorazepam 0.5 MG Q8P PRN 12/18 0600 AC 12/18 PO 12/25 0559 0604 Lorazepam 0.5 MG ONCE ONE 12/17 1800 DC 12/17 PO 12/17 1801 1755 Morphine Sulfate 4 MG Q4P PRN 12/16 1030 AC IV Ondansetron HCl 4 MG Q6P PRN 12/14 1900 AC 12/16 IV 1301 Oxycodone/ 1 TAB Q4P PRN 12/16 1030 AC 12/18 Acetaminophen PO 0933 Oxycodone/ 2 TAB Q4P PRN 12/16 1030 AC 12/17 Acetaminophen PO 1900 Promethazine HCl 12.5 MG Q8P PRN 12/16 1715 AC 12/17 IV 12/23 1714 0144 Sertraline HCl 50 MG DAILY 12/15 1000 AC 12/18 PO 1129 Last 24 Hrs of Lab/Bon Results Last 24 Hrs of Labs/Mics: Laboratory Tests 12/18/16 0535: CBC w Diff NO MAN DIFF REQ, RBC 3.47 L, MCV 91.3, MCH 30.4, RDW 14.4, MPV 8.8, Gran % 62.8, Lymphocytes % 20.2 L, Monocytes % 6.0, Eosinophils % 10.4 H, Basophils % 0.6, Absolute Granulocytes 3.5, Absolute Lymphocytes 1.1 L, Absolute Monocytes 0.3, Absolute Eosinophils 0.6, Absolute Basophils 0, PUBS MCHC 33.3 Assessment/Plan Assessment: This is a 66-year-old female with past medical history of hyperparathyroidism status post partial parathyroidectomy, diverticulitis, osteoporosis, arthritis, depression, generalized anxiety, fibromyalgia who was recently hospitalized [place] for gallstone pancreatitis with subsequent cholecystectomy. At that time an irregular masslike opacification in the anterior segment of the left upper lobe was identified. Lesion was subsequently PET positive. On 12/14/2016 patient went for navigational bronchoscopy which identified non-small cell carcinoma in left upper lobe, she then had a VATS with wedge resection of the left upper lobe with positive margins which resulted in subsequent left upper lobectomy with lymph node biopsy. She had 2 chest tubes placed Patient is now transferred to ICU for closer monitoring with medicine consult onboard. PLAN Respiratory: She has left upper lobe resection for non-small cell lung cancer. This is postop day 3. Pt has continued to improve; hemodynamically stable. She is currently satting 98% on RA. Cxr shows small pneumothorax of 10% but has anterior chest tube in on water seal. Will downgrade to [facility] floor today. * Pending chest x-ray this a.m. 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 Continue to monitor. She received antibiotics after surgery. Cardio: Patient is stable from a cardio perspective. Continue to monitor. Heme/Onc: Patient H&H this a.m. was 11 and 33. She has remained hemodynamically stable. We'll continue to monitor her. Musculoskeletal: * pt has hx of osteoporosis: Continue vitamin D and alendronate GI/ Nephro/Endo: Stable continue to monitor. Depression: Continue sertraline 50 mg daily Problem List: 1. S/P lobectomy of lung Pain Ratin Pain Location: none Pain Goal: Remain pain free Pain Plan: none Tomorrow's Labs & Rationales: icu DVT/Prophylaxis: mechanical, pharmacological
[2016-12-18 16:00] VITALS: BP 120/70
[2016-12-19] VITALS: BP 132/80
--- NOTE | 2016-12-19 05:58 | PN- Thoracic Surgery ---
Subjective Subjective: No acute events overnight. No new c/o. Pain controlled. Patient felt somewhat anxious yesterday but feels better. Chest tube remains on water seal. No changes in breathing from yesterday. Tolerating diet, no n/v. +flatus. has been OOB to chair. Objective Vital Signs and I&Os Vital Signs Date Time Temp Pulse Resp B/P Pulse O2 O2 Flow FiO2 Ox Delivery Rate 12/19 0305 96 Room Air 12/19 0000 Room Air 12/19 0000 97.9 76 16 132/80 12/18 1717 95 Room Air Room Air 12/18 1600 98 Room Air 12/18 1600 98.0 82 17 120/70 98 Room Air 12/18 0834 97 Room Air Room Air 12/18 0800 98.6 89 20 130/88 93 Room Air 12/18 0800 93 Room Air Intake & Output 12/19 0800 12/19 0000 12/18 1600 12/18 0800 12/18 0000 12/17 1600 Intake Total 230 1000 600 760 720 Output Total 250 802 135 3586 1060 Balance -20 100 -370 -240 -340 Intake, IV 30 Intake, Oral 200 1000 600 760 720 Output, Chest 70 10 Tube Drainage Output, Urine 250 255 569 5768 1050 Physical Exam: General: NAD, comfortable, A&Ox3 Chest: Decreased breathsouds throughout left chest. Left chest tube in place with +air leak. Left chest incision c/d/i. Heart S1S2 normal. Abdomen: soft, nontender, nondistended. Ext: No calve swelling/TTP, neurovascularly intact bilateral lower extremities Assessment/Plan Assessment/Plan Plan: -Keep chest tube to water seal -f/u CXR in am -Continue pain control -Encourage incentive spirometer and deep breathing. TRC's. -Subcutaneous heparin and Alps for DVT prophylaxis. -Pepcid for GI prophylaxis. -bowel regimen. -OOB to chair -Medical management per critical care team. Appreciate input. -Continue to monitor closely. -Will discuss with dr nunn. Core Measures/Miscellaneous Palma Catheter Date In: 12/14/16 Venous Thromboembolism VTE Risk Factors: Age > 40, Cancer/chemo/oth therapy, Surgery VTE Contraindications: No Contraindications VTE Prophylaxis Ordered Inpt: Mech & Pharm VTE Diagnosis: No VTE Type: NONE VTE Confirmed by (Test): NONE Beta Rachna Is Beta Rachna a Home Med? No Antibiotics Is Patient on Antibiotics? No
[2016-12-19 06:08] LABS: ABSOLUTE BASOPHIL COUNT 0 /CUMM (0.0-0.2); ABSOLUTE EOSINOPHIL COUNT 0.5 /CUMM (0.0-0.7); ABSOLUTE GRANULOCYTE CT 3.5 /CUMM (1.4-6.5); ABSOLUTE MONOCYTE COUNT 0.3 /CUMM (0.10-0.60); BASOPHIL % 0.4 % (0.0-2.0); EOSINOPHIL % 9.2 % (0-5); GRANULOCYTE % 65.9 % (42.2-75.2); HEMATOCRIT 32.7 % (37-47); MEAN CORPUSCULAR HGB 30.5 PG (27.0-31.0); MEAN CORPUSCULAR HGB CONC 33.7 G/DL (33.0-37.0); MEAN CORPUSCULAR VOLUME 90.7 FL (81.0-99.0); MEAN PLATELET VOLUME 8.4 FL (7.4-10.4); PLATELET COUNT 286 /CUMM (130-400); RBC DISTRIBUTION WIDTH 13.7 % (11.5-14.5); RED BLOOD CELL CT 3.61 /CUMM (4.20-5.40); WHITE BLOOD CELL COUNT 5.4 /CUMM (4.8-10.8)
--- NOTE | 2016-12-19 06:08 | RADIOLOGY REPORT ---
EXAMINATION: XR PORTABLE CHEST CLINICAL INFORMATION: Pneumothorax status post lobectomy. COMPARISON: Chest x-ray 12/18/2016. TECHNIQUE: Portable view of the chest was obtained. FINDINGS: Left chest tube remains in unchanged position with its tip projecting over the medial left lung apex. No residual pneumothorax is identified on the current study. Small volume subcutaneous emphysema within the left lateral chest wall unchanged. Low lung volumes are again noted. Left midlung parenchymal airspace opacity is stable. Bibasilar subsegmental atelectasis. Biapical pleural thickening is stable. Cardiac silhouette size is normal. There are no acute osseous findings. Radiodensity projecting over the left breast is unchanged. IMPRESSION: - Left chest tube in place with no residual pneumothorax identified. Stable small amount of subcutaneous emphysema within the lower left lateral chest wall. - Stable appearing airspace opacity within the left midlung. Stable bibasilar atelectasis.
[2016-12-19 08:00] VITALS: BP 130/78
--- NOTE | 2016-12-19 10:07 | PN- CRCU ---
Subjective HPI/Critical Care Issues: pt seen and examined cxr without pneumothorax chest tube per surgery will be dg no n/v/d/c no salmeron Objective Current Medications: Current Medications Sig/Lasha Start time Last Medication Dose Route Stop Time Status Admin Albuterol Sulfate 3 ML Q4 12/14 2199 AC 12/19 INH 0956 Alendronate Sodium 70 MG QSUN 12/17 0700 AC 12/17 PO 0623 Cholecalciferol 2,000 IU DAILY 12/15 1000 AC 12/19 PO 0938 Docusate Sodium 100 MG BID 12/17 2200 AC 12/19 PO 0938 Famotidine 20 MG BID 12/14 2200 AC 12/19 IV 0938 Heparin Sodium 5,000 UNIT Q8 12/15 0600 AC 12/19 (Porcine) SC 0540 Lorazepam 0.5 MG Q8P PRN 12/18 0600 AC 12/18 PO 12/25 0559 0604 Morphine Sulfate 4 MG Q4P PRN 12/16 1030 AC IV Ondansetron HCl 4 MG Q6P PRN 12/14 1900 AC 12/16 IV 1301 Oxycodone/ 1 TAB Q4P PRN 12/16 1030 AC 12/19 Acetaminophen PO 0540 Oxycodone/ 2 TAB Q4P PRN 12/16 1030 AC 12/19 Acetaminophen PO 0937 Promethazine HCl 12.5 MG Q8P PRN 12/16 1715 AC 12/17 IV 12/23 1714 0144 Sertraline HCl 50 MG DAILY 12/15 1000 AC 12/19 PO 0938 Vital Signs & I&O Last 24 Hrs of Vitals and I&O: Vital Signs Date Time Temp Pulse Resp B/P Pulse O2 O2 Flow FiO2 Ox Delivery Rate 12/19 0800 98.5 86 18 130/78 94 Room Air 12/19 0800 94 Room Air 12/19 0305 96 Room Air 12/19 0000 Room Air 12/19 0000 97.9 76 16 132/80 12/18 1717 95 Room Air Room Air 12/18 1600 98 Room Air 12/18 1600 98.0 82 17 120/70 98 Room Air Intake & Output 12/19 1600 12/19 0800 12/19 0000 Intake Total 400 230 Output Total 840 250 Balance -440 -20 Intake, IV 30 Intake, Oral 400 200 Output, Chest 140 Tube Drainage Output, Urine 700 250 Exam Other Physical Findings: General - Alert, awake and oriented HEENT - normocephalic, atraumatic Cardiovascular - S1, S2 Lungs - rare rhonchi, chest tube in place Abdomen - soft, bowel sounds positive, no tenderness Extremities - without edema or cyanosis Results Last 24 Hrs of Lab Results: Laboratory Tests 12/19/16 0530: Anion Gap 8, Estimated GFR > 60, Glucose 91, Calcium 8.9, Phosphorus 4.7 H, Magnesium 1.9, Total Bilirubin 0.4, AST 52 H, ALT 62 H, Albumin 3.5, CBC w Diff NO MAN DIFF REQ, RBC 3.61 L, MCV 90.7, MCH 30.5, RDW 13.7, MPV 8.4, Gran % 65.9, Lymphocytes % 19.2 L, Monocytes % 5.3, Eosinophils % 9.2 H, Basophils % 0.4, Absolute Granulocytes 3.5, Absolute Lymphocytes 1.0 L, Absolute Monocytes 0.3, Absolute Eosinophils 0.5, Absolute Basophils 0, PUBS MCHC 33.7 Impression/Plan Impression/Plan Impression/Plan: Impression 66-year-old woman with a cholecystectomy September with an incidental finding of a left upper lobe mass. Lesion was a regular in the left upper lobe and PET positive. Patient underwent navigational bronchoscopy with thinking followed by resection of mass consistent with carcinoma and has followed by lobectomy. Plan - Pain control - Post thoracotomy protocol with TRC - Chest tube output and monitoring per cardiothoracic surgery - Strict ins and outs measurements - Monitor blood work and electrolytes - DVT prophylaxis at all times TTS 35 min Can DG after CT removed.
--- NOTE | 2016-12-19 13:06 | Event Note ---
Event Note Event Note: REMAINING CHEST TUBE PULLED WITHOUT DIFFICULTY. PATIENT TOLERATED WELL. FOLLOW UP CXR IN AM D/W ?DOWNGRADE TOMORROW TO GEN MED
--- NOTE | 2016-12-19 13:22 | PN- Housestaff ---
Subjective Follow-up For: chest tube Tele-Events Since Last Visit: NSR. Subjective: Saw pt at bedside. She was sitting in chair at bed side. Xray better with no sign of pneumothorax. Plan is to remove second chest tube shortly. Pt can then be transferre to . Review of Systems Constitutional: Denies: chills, diaphoresis, fever. EENTM: Denies: blurred vision. Cardiovascular: Denies: chest pain, palpitations. Respiratory: Denies: cough, hemoptysis. Gastrointestinal: Denies: abdominal pain, constipation, diarrhea. Genitourinary: Denies: dysuria, frequency. Musculoskeletal: Denies: back pain, joint pain, joint swelling. Objective Last 24 Hrs of Vital Signs/I&O Vital Signs Date Time Temp Pulse Resp B/P Pulse O2 O2 Flow FiO2 Ox Delivery Rate 12/19 1040 94 Room Air 12/19 0800 98.5 86 18 130/78 94 Room Air 12/19 0800 94 Room Air 12/19 0305 96 Room Air 12/19 0000 Room Air 12/19 0000 97.9 76 16 132/80 12/18 1717 95 Room Air Room Air 12/18 1600 98 Room Air 12/18 1600 98.0 82 17 120/70 98 Room Air Intake & Output 12/19 1600 12/19 0800 12/19 0000 Intake Total 400 230 Output Total 840 250 Balance -440 -20 Intake, IV 30 Intake, Oral 400 200 Output, Chest 140 Tube Drainage Output, Urine 700 250 Physical Exam General Appearance: Alert, Oriented X3, Cooperative Skin: No Rashes, No Breakdown HEENT: Atraumatic, PERRLA Neck: Supple Cardiovascular: Regular Rate, Normal S1, Normal S2 Lungs: Clear to Auscultation Abdomen: Normal Bowel Sounds, Soft Neurological: Normal Gait, Normal Speech Extremities: No Clubbing, No Cyanosis, No Edema Current Medications: Current Medications Sig/Lasha Start time Last Medication Dose Route Stop Time Status Admin Albuterol Sulfate 3 ML Q4 12/14 2199 AC 12/19 INH 0956 Alendronate Sodium 70 MG QSUN 12/17 0700 AC 12/17 PO 0623 Cholecalciferol 2,000 IU DAILY 12/15 1000 AC 12/19 PO 0938 Docusate Sodium 100 MG BID 12/17 2199 AC 12/19 PO 0938 Famotidine 20 MG BID 12/14 2199 AC 12/19 IV 0938 Heparin Sodium 5,000 UNIT Q8 12/15 0600 AC 12/19 (Porcine) SC 0540 Lorazepam 0.5 MG Q8P PRN 12/18 0600 AC 12/18 PO 12/25 0559 0604 Morphine Sulfate 4 MG Q4P PRN 12/16 1030 AC IV Ondansetron HCl 4 MG Q6P PRN 12/14 1900 AC 12/19 IV 1241 Oxycodone/ 1 TAB Q4P PRN 12/16 1030 AC 12/19 Acetaminophen PO 0540 Oxycodone/ 2 TAB Q4P PRN 12/16 1030 AC 12/19 Acetaminophen PO 0937 Promethazine HCl 12.5 MG Q8P PRN 12/16 1715 AC 12/17 IV 12/23 1714 0144 Sertraline HCl 50 MG DAILY 12/15 1000 AC 12/19 PO 0938 Last 24 Hrs of Lab/Bon Results Last 24 Hrs of Labs/Mics: Laboratory Tests 12/19/16 0530: Anion Gap 8, Estimated GFR > 60, Glucose 91, Calcium 8.9, Phosphorus 4.7 H, Magnesium 1.9, Total Bilirubin 0.4, AST 52 H, ALT 62 H, Albumin 3.5, CBC w Diff NO MAN DIFF REQ, RBC 3.61 L, MCV 90.7, MCH 30.5, RDW 13.7, MPV 8.4, Gran % 65.9, Lymphocytes % 19.2 L, Monocytes % 5.3, Eosinophils % 9.2 H, Basophils % 0.4, Absolute Granulocytes 3.5, Absolute Lymphocytes 1.0 L, Absolute Monocytes 0.3, Absolute Eosinophils 0.5, Absolute Basophils 0, PUBS MCHC 33.7 Assessment/Plan Assessment: This is a 66-year-old female with past medical history of hyperparathyroidism status post partial parathyroidectomy, diverticulitis, osteoporosis, arthritis, depression, generalized anxiety, fibromyalgia who was recently hospitalized [place] for gallstone pancreatitis with subsequent cholecystectomy. At that time an irregular masslike opacification in the anterior segment of the left upper lobe was identified. Lesion was subsequently PET positive. On 12/14/2016 patient went for navigational bronchoscopy which identified non-small cell carcinoma in left upper lobe, she then had a VATS with wedge resection of the left upper lobe with positive margins which resulted in subsequent left upper lobectomy with lymph node biopsy. She had 2 chest tubes placed Patient is now transferred to ICU for closer monitoring with medicine consult onboard. Can be transferred back to today as both chest tubes have been removed and she is satting well on RA. PLAN Respiratory: She has left upper lobe resection for non-small cell lung cancer. This is postop day 4. Pt has continued to improve; hemodynamically stable. She is currently satting 98% on RA. Anterior chest tube removed today. CXR today with no pneumothorax. Will downgrade to floor today. 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 ID: Patient is stable from ID perspective. Continue to monitor. She received antibiotics after surgery. Cardio: Patient is stable from a cardio perspective. Continue to monitor. Heme/Onc: Patient H&H this a.m. was 11 and 32.7. She has remained hemodynamically stable. We'll continue to monitor her. Musculoskeletal: * pt has hx of osteoporosis: Continue vitamin D and alendronate GI/ Nephro/Endo: Stable continue to monitor. Depression: Continue sertraline 50 mg daily Problem List: 1. Anxiety and depression 2. S/P lobectomy of lung Pain Ratin Pain Location: none Pain Goal: Remain pain free Pain Plan: none Tomorrow's Labs & Rationales: icu cbc
[2016-12-19 16:00] VITALS: BP 140/70
[2016-12-20] VITALS: BP 140/78
[2016-12-20] MEDS ORDERED: PERCOCET 5-3251 EACH PO (05:35)
--- NOTE | 2016-12-20 05:54 | PN- Thoracic Surgery ---
Subjective Subjective: NAEO. Anterior chest tube dc'd yesterday. Patient had no increased difficulty breathing overnight. Pain improved. Tolerating diet without n/v. +flatus, BM. OOB to chair and bathroom. Denies new CP. Objective Vital Signs and I&Os Vital Signs Date Time Temp Pulse Resp B/P Pulse O2 O2 Flow FiO2 Ox Delivery Rate 12/20 0000 94 Room Air 12/20 0000 97.9 83 16 140/78 94 Room Air 12/19 2000 Room Air 12/19 1932 95 Room Air Room Air 12/19 1600 93 Room Air 12/19 1600 99.1 80 24 140/70 93 Room Air 12/19 1600 99.2 80 22 140/70 93 Room Air 12/19 1405 96 Room Air 12/19 1040 94 Room Air 12/19 0800 98.5 86 18 130/78 94 Room Air 12/19 0800 94 Room Air Intake & Output 12/20 0800 12/20 0000 12/19 1600 12/19 0800 12/19 0000 12/18 1600 Intake Total 600 406 849 4515 Output Total 750 840 250 900 Balance -150 -440 -20 100 Intake, IV 30 Intake, Oral 600 601 419 2046 Output, Chest 140 Tube Drainage Output, Urine 750 700 250 900 Physical Exam: General: NAD, comfortable, A&Ox3 Chest: Slightly decreased BS left upper lung, otherwise good breath sounds. No wheezes. Chest incision intact with steri strips in place. CT dressings c/d/i. Heart S1S2 normal. Abdomen: soft, nontender, nondistended. +Bowel sounds x4 quadrants Ext: No calve swelling/TTP, neurovascularly intact bilateral lower extremities Current Medications: Current Medications Sig/Lasha Start time Last Medication Dose Route Stop Time Status Admin Albuterol Sulfate 3 ML EVERY 4 HRS/AWAKE 12/19 1600 AC 12/19 INH 1929 Albuterol Sulfate 3 ML Q4 12/14 2200 DC 12/19 INH 1410 Alendronate Sodium 70 MG QSUN 12/17 0700 AC 12/17 PO 0623 Cholecalciferol 2,000 IU DAILY 12/15 1000 AC 12/19 PO 0938 Docusate Sodium 100 MG BID 12/17 2200 AC 12/19 PO 2217 Famotidine 20 MG BID 12/14 2200 AC 12/19 IV 2213 Heparin Sodium 5,000 UNIT Q8 12/15 0600 AC 12/19 (Porcine) SC 2217 Lorazepam 0.5 MG Q8P PRN 12/18 0600 AC 12/18 PO 12/25 0559 0604 Morphine Sulfate 4 MG Q4P PRN 12/16 1030 AC IV Ondansetron HCl 4 MG .STK-MED ONE 12/19 1238 DC IM 12/19 1239 Ondansetron HCl 4 MG Q6P PRN 12/14 1900 AC 12/19 IV 1241 Oxycodone/ 1 TAB Q4P PRN 12/16 1030 AC 12/19 Acetaminophen PO 2213 Oxycodone/ 2 TAB Q4P PRN 12/16 1030 AC 12/20 Acetaminophen PO 0101 Promethazine HCl 12.5 MG Q8P PRN 12/16 1715 AC 12/17 IV 12/23 171 0144 Sertraline HCl 50 MG DAILY 12/15 1000 AC 12/19 PO 0938 Results Last 48 Hours of Labs: Laboratory Tests 12/19 0530 Chemistry Sodium (137 - 145 mmol/L) 138 Potassium (3.5 - 5.1 mmol/L) 4.0 Chloride (98 - 107 mmol/L) 102 Carbon Dioxide (22 - 30 mmol/L) 29 Anion Gap (5 - 16) 8 BUN (7 - 17 mg/dL) 10 Creatinine (0.5 - 1.0 mg/dL) 0.6 Estimated GFR (>60 ml/min) > 60 Glucose (65 - 99 mg/dL) 91 Calcium (8.4 - 10.2 mg/dL) 8.9 Phosphorus (2.5 - 4.5 mg/dL) 4.7 H Magnesium (1.6 - 2.3 mg/dL) 1.9 Total Bilirubin (0.2 - 1.3 mg/dL) 0.4 AST (14 - 36 U/L) 52 H ALT (9 - 52 U/L) 62 H Albumin (3.5 - 5.0 g/dL) 3.5 Hematology CBC w Diff NO MAN DIFF REQ WBC (4.8 - 10.8 /CUMM) 5.4 RBC (4.20 - 5.40 /CUMM) 3.61 L Hgb (12.0 - 16.0 G/DL) 11.0 L Hct (37 - 47 %) 32.7 L MCV (81.0 - 99.0 FL) 90.7 MCH (27.0 - 31.0 PG) 30.5 RDW (11.5 - 14.5 %) 13.7 Plt Count (130 - 400 /CUMM) 286 MPV (7.4 - 10.4 FL) 8.4 Gran % (42.2 - 75.2 %) 65.9 Lymphocytes % (20.5 - 51.1 %) 19.2 L Monocytes % (1.7 - 9.3 %) 5.3 Eosinophils % (0 - 5 %) 9.2 H Basophils % (0.0 - 2.0 %) 0.4 Absolute Granulocytes (1.4 - 6.5 /CUMM) 3.5 Absolute Lymphocytes (1.2 - 3.4 /CUMM) 1.0 L Absolute Monocytes (0.10 - 0.60 /CUMM) 0.3 Absolute Eosinophils (0.0 - 0.7 /CUMM) 0.5 Absolute Basophils (0.0 - 0.2 /CUMM) 0 PUBS MCHC (33.0 - 37.0 G/DL) 33.7 Assessment/Plan Assessment/Plan 66yo F POD#65 s/p VATS left upper lobectomy. AVSS. All chest tubes dc'd and patient had no difficulty breathing overnight. Plan: -f/u CXR -Continue pain control -Encourage incentive spirometer and deep breathing. TRC's. -Subcutaneous heparin and Alps for DVT prophylaxis. -Pepcid for GI prophylaxis. -bowel regimen. -OOB and ambulate -Medical management per critical care team. Appreciate input. -Will discuss with attending. Core Measures/Miscellaneous Palma Catheter Date In: 12/14/16 Venous Thromboembolism VTE Risk Factors: Age > 40, Cancer/chemo/oth therapy, Surgery VTE Contraindications: No Contraindications VTE Prophylaxis Ordered Inpt: Mech & Pharm VTE Diagnosis: No VTE Type: NONE VTE Confirmed by (Test): NONE Beta Rachna Is Beta Rachna a Home Med? No Antibiotics Is Patient on Antibiotics? No
--- NOTE | 2016-12-20 05:56 | Patient Discharge Instructions ---
Discharge Instructions General Discharge Information You were seen/treated for: Left upper lobe lung nodule You had these procedures: 12/14/16 Left thoracoscopy with wedge resection left upper lobe lung nodule. Left upper lobectomy with mediastinal lymph node dissection Watch for these problems: Redness, swelling, fever, purulent drainage, signs of infection. Increased Difficulty breathing and/or shortness of breath. Chest pain. Excessive bleeding. Uncontrolled. Do not soak the wound: Yes No bath, but you may shower: Yes Other wound care: Daily dressing changes or as needed Diet Continue normal diet: Yes Activity Full Activity/No Limits: No Pounds, do NOT lift more than: 10 Other activity limits: No strenuous activity and/or exercise Acute Coronary Syndrome Inclusion Criteria At DC or during hospital stay patient has or had the following: ACS DIAGNOSIS No Discharge Core Measures Meds if any: Prescribed or Continued at Discharge Meds if any: NOT Prescribed or Continued at Discharge Congestive Heart Failure Inclusion Criteria At DC or during hospital stay patient has or had the following: CHF DIAGNOSIS No Discharge Core Measures Meds if any: Prescribed or Continued at Discharge Meds if any: NOT Prescribed or Continued at Discharge Cerebrovascular accident Inclusion Criteria At DC or during hospital stay patient has or had the following: CVA/TIA Diagnosis No Discharge Core Measures Meds if any: Prescribed or Continued at Discharge Meds if any: NOT Prescribed or Continued at Discharge Venous thromboembolism Inclusion Criteria VTE Diagnosis No VTE Type NONE VTE Confirmed by (Test) NONE Discharge Core Measures - Per Current guidelines, there needs to be overlap - treatment for the first 5 days of Warfarin therapy. - If discharged on Warfarin prior to 5 days of - overlap therapy, the patient will need to be - assessed for post discharge needs including - *Post discharge parental anticoagulation - *Warfarin and/or parental anticoagulation education - *Follow up date to check INR post discharge At least 5 days overlap therapy as Inpatient No Meds if any: Prescribed or Continued at Discharge Note: Overlap Therapy is Warfarin and Anticoagulant Meds if any: NOT Prescribed or Continued at Discharge
[2016-12-20 07:53] LABS: ABSOLUTE BASOPHIL COUNT 0 /CUMM (0.0-0.2); ABSOLUTE EOSINOPHIL COUNT 0.7 /CUMM (0.0-0.7); ABSOLUTE GRANULOCYTE CT 3.2 /CUMM (1.4-6.5); ABSOLUTE MONOCYTE COUNT 0.3 /CUMM (0.10-0.60); EOSINOPHIL % 12.5 % (0-5); GRANULOCYTE % 61.6 % (42.2-75.2); HEMATOCRIT 33.5 % (37-47); MEAN CORPUSCULAR HGB 30.4 PG (27.0-31.0); MEAN CORPUSCULAR HGB CONC 33.5 G/DL (33.0-37.0); MEAN CORPUSCULAR VOLUME 90.9 FL (81.0-99.0); MEAN PLATELET VOLUME 8.5 FL (7.4-10.4); PLATELET COUNT 302 /CUMM (130-400); RBC DISTRIBUTION WIDTH 14.2 % (11.5-14.5); RED BLOOD CELL CT 3.69 /CUMM (4.20-5.40); WHITE BLOOD CELL COUNT 5.2 /CUMM (4.8-10.8)
[2016-12-20 08:00] VITALS: BP 136/82
--- NOTE | 2016-12-20 08:19 | RADIOLOGY REPORT ---
EXAMINATION: XR PORTABLE CHEST CLINICAL INFORMATION: Postop left thoracotomy. COMPARISON: 12/19/2016. TECHNIQUE: Single view of the chest was obtained. FINDINGS: Postoperative changes involving the left hemithorax with partial resection of the sixth rib. Left-sided thoracostomy tube has been removed. There is a small left apical pneumothorax measuring approximately 1 cm in maximal width. There is a small amount of residual left-sided soft tissue emphysema adjacent to the chest wall. Lung volumes remain diminished. Lobulated opacity in the mid left lung field persists likely discoid atelectasis and/or loculated fluid along with a staple line from a previous wedge resection of left upper lobe. Mild bibasilar atelectasis, left side greater than right. Trace left pleural effusion. Cardiomediastinal silhouette is unchanged. IMPRESSION: Small left apical pneumothorax status post chest tube removal. Otherwise findings largely unchanged.
--- NOTE | 2016-12-20 11:01 | PN- Housestaff ---
Subjective Follow-up For: Status post left upper lobe lobectomy with mediastinal lymph node dissection. Tele-Events Since Last Visit: No acute events on telemetry. Patient in NSR Subjective: Saw patient at bedside this a.m. She was sitting up in chair eating breakfast. She stated she felt much better was able to ambulate to bathroom. Denied any shortness of breath. She had her second chest tube removed yesterday afternoon. This a.m. chest x-ray showed small left apical pneumothorax. Her CT surgery recommendations, patient could go home if follow-up chest x-ray at noon today shows no interval increase in pneumo. Patient is very interested in going home. Review of Systems Constitutional: Denies: chills, diaphoresis, fever, malaise, weakness. EENTM: Reports: no symptoms. Cardiovascular: Denies: chest pain, orthopena, palpitations. Respiratory: Denies: cough, orthopnea, short of breath, sputum production, stridor, wheezing. Gastrointestinal: Reports: constipation. Denies: abdominal pain, bloating, diarrhea. Genitourinary: Reports: no symptoms. Musculoskeletal: Reports: no symptoms. Skin: Reports: no symptoms. Neurological/Psychological: Reports: anxiety. Objective Last 24 Hrs of Vital Signs/I&O Vital Signs Date Time Temp Pulse Resp B/P Pulse O2 O2 Flow FiO2 Ox Delivery Rate 12/20 0808 95 Room Air 12/20 0000 94 Room Air 12/20 0000 97.9 83 16 140/78 94 Room Air 12/19 2000 Room Air 12/19 1932 95 Room Air Room Air 12/19 1600 93 Room Air 12/19 1600 99.1 80 24 140/70 93 Room Air 12/19 1600 99.2 80 22 140/70 93 Room Air 12/19 1405 96 Room Air Intake & Output 12/20 1600 12/20 0800 12/20 0000 Intake Total 240 Output Total Balance 240 Intake, IV 0 Intake, Oral 240 Number 0 Bowel Movements Physical Exam General Appearance: Alert, Oriented X3, Cooperative, No Acute Distress Skin: RECENT HAS A LARGE BANDAGE COVERING SITES OF CHEST TUBE REMOVAL. bANDAGE LOOKS CLEAN. dID NOT REMOVE TO INSPECT WOUND UNDERNEATH HEENT: Atraumatic, PERRLA, EOMI Neck: Supple Cardiovascular: Regular Rate, Normal S1, Normal S2, No Murmurs Lungs: DECREASED BREATH MOVEMENT IN BOTTOM LUNG BRITO. nO WHEEZES RALES OR RHONCHI. pATIENT IS TAKING SHALLOW BREATHS SECONDARY TO PAIN Abdomen: Soft, No Tenderness Neurological: Normal Speech, Strength at 5/5 X4 Ext, Normal Tone Extremities: No Clubbing, No Cyanosis, No Edema Current Medications: Current Medications Sig/Lasha Start time Last Medication Dose Route Stop Time Status Admin Albuterol Sulfate 3 ML EVERY 4 HRS/AWAKE 12/19 1600 AC 12/20 INH 0759 Albuterol Sulfate 3 ML Q4 12/14 2200 DC 12/19 INH 1410 Alendronate Sodium 70 MG QSUN 12/17 0700 AC 12/17 PO 0623 Alprazolam 0.5 MG ONCE ONE 12/20 0945 DC 12/20 PO 12/20 0946 1026 Cholecalciferol 2,000 IU DAILY 12/15 1000 AC 12/20 PO 1026 Docusate Sodium 100 MG BID 12/17 2200 AC 12/20 PO 1026 Famotidine 20 MG BID 12/14 2200 AC 12/20 IV 1026 Heparin Sodium 5,000 UNIT Q8 12/15 0600 AC 12/20 (Porcine) SC 0650 Lorazepam 0.5 MG Q8P PRN 12/18 0600 AC 12/18 PO 12/25 0559 0604 Morphine Sulfate 4 MG Q4P PRN 12/16 1030 AC IV Ondansetron HCl 4 MG .STK-MED ONE 12/19 1238 DC IM 12/19 1239 Ondansetron HCl 4 MG Q6P PRN 12/14 1900 AC 12/19 IV 1241 Oxycodone/ 1 TAB Q4P PRN 12/16 1030 AC 12/19 Acetaminophen PO 2213 Oxycodone/ 2 TAB Q4P PRN 12/16 1030 AC 12/20 Acetaminophen PO 0101 Polyethylene Glycol 17 GM DAILY 12/20 1000 AC PO Promethazine HCl 12.5 MG Q8P PRN 12/16 1715 AC 12/17 IV 12/23 1714 0144 Senna/Docusate Sodium 1 TAB BID 12/20 1000 AC PO Sertraline HCl 50 MG DAILY 12/15 1000 AC 12/20 PO 1026 Last 24 Hrs of Lab/Bon Results Last 24 Hrs of Labs/Mics: Laboratory Tests 12/20/16 0648: Anion Gap 6, Estimated GFR > 60, Glucose 79, Calcium 8.8, Phosphorus 4.1, Magnesium 2.0, Total Bilirubin 0.4, AST 73 H, ALT 82 H, Albumin 3.5, CBC w Diff NO MAN DIFF REQ, RBC 3.69 L, MCV 90.9, MCH 30.4, RDW 14.2, MPV 8.5, Gran % 61.6, Lymphocytes % 19.6 L, Monocytes % 5.3, Eosinophils % 12.5 H, Basophils % 1.0, Absolute Granulocytes 3.2, Absolute Lymphocytes 1.0 L, Absolute Monocytes 0.3, Absolute Eosinophils 0.7, Absolute Basophils 0, PUBS MCHC 33.5 Assessment/Plan Assessment: This is a 66-year-old female with past medical history of hyperparathyroidism status post partial parathyroidectomy, diverticulitis, osteoporosis, arthritis, depression, generalized anxiety, fibromyalgia who was recently hospitalized [facility] for gallstone pancreatitis with subsequent cholecystectomy. At that time an irregular masslike opacification in the anterior segment of the left upper lobe was identified. Lesion was subsequently PET positive. On 12/14/2016 patient went for navigational bronchoscopy which identified non-small cell carcinoma in left upper lobe, she then had a VATS with wedge resection of the left upper lobe with positive margins which resulted in subsequent left upper lobectomy with lymph node biopsy. She had 2 chest tubes placed Patient is now transferred to ICU for closer monitoring with medicine consult onboard. Can be transferred back to [facility] as both chest tubes have been removed and she is satting well on RA. PLAN Respiratory: She has left upper lobe resection for non-small cell lung cancer. This is postop day 6. Pt has continued to improve; hemodynamically stable. She is currently satting 98% on RA. Both chest tubes removed. CXR today small apical pneumothorax status post chest tube removal. She will have repeat 12 PM chest x-ray for interval follow-up. 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 ID: Patient is stable from ID perspective. Continue to monitor. She received antibiotics after surgery. Cardio: Patient is stable from a cardio perspective. Continue to monitor. Heme/Onc: Patient H&H this a.m. was 11 and 32.7. She has remained hemodynamically stable. We'll continue to monitor her. Musculoskeletal: * pt has hx of osteoporosis: Continue vitamin D and alendronate GI/ Nephro/Endo: Stable continue to monitor. Depression: Continue sertraline 50 mg daily Problem List: 1. S/P lobectomy of lung Pain Ratin Pain Location: none Pain Goal: Remain pain free Pain Plan: none Tomorrow's Labs & Rationales: none
--- NOTE | 2016-12-20 11:26 | PN- CRCU ---
Subjective HPI/Critical Care Issues: pt seen and examined doing better small left apical ptx ct removed anxiety Objective Current Medications: Current Medications Sig/Lasha Start time Last Medication Dose Route Stop Time Status Admin Albuterol Sulfate 3 ML EVERY 4 HRS/AWAKE 12/19 1600 AC 12/20 INH 1102 Albuterol Sulfate 3 ML Q4 12/14 2200 DC 12/19 INH 1410 Alendronate Sodium 70 MG QSUN 12/17 0700 AC 12/17 PO 0623 Alprazolam 0.5 MG ONCE ONE 12/20 0945 DC 12/20 PO 12/20 0946 1026 Cholecalciferol 2,000 IU DAILY 12/15 1000 AC 12/20 PO 1026 Docusate Sodium 100 MG BID 12/17 2200 AC 12/20 PO 1026 Famotidine 20 MG BID 12/14 2200 AC 12/20 IV 1026 Heparin Sodium 5,000 UNIT Q8 12/15 0600 AC 12/20 (Porcine) SC 0650 Lorazepam 0.5 MG Q8P PRN 12/18 0600 AC 12/18 PO 12/25 0559 0604 Morphine Sulfate 4 MG Q4P PRN 12/16 1030 AC IV Ondansetron HCl 4 MG .STK-MED ONE 12/19 1238 DC IM 12/19 1239 Ondansetron HCl 4 MG Q6P PRN 12/14 1900 AC 12/19 IV 1241 Oxycodone/ 1 TAB Q4P PRN 12/16 1030 AC 12/19 Acetaminophen PO 2213 Oxycodone/ 2 TAB Q4P PRN 12/16 1030 AC 12/20 Acetaminophen PO 0101 Polyethylene Glycol 17 GM DAILY 12/20 1000 AC PO Promethazine HCl 12.5 MG Q8P PRN 12/16 1715 AC 12/17 IV 12/23 1714 0144 Senna/Docusate Sodium 1 TAB BID 12/20 1000 AC PO Sertraline HCl 50 MG DAILY 12/15 1000 AC 12/20 PO 1026 Vital Signs & I&O Last 24 Hrs of Vitals and I&O: Vital Signs Date Time Temp Pulse Resp B/P Pulse O2 O2 Flow FiO2 Ox Delivery Rate 12/20 0808 95 Room Air 12/20 0000 94 Room Air 12/20 0000 97.9 83 16 140/78 94 Room Air 12/19 2000 Room Air 12/19 1932 95 Room Air Room Air 12/19 1600 93 Room Air 12/19 1600 99.1 80 24 140/70 93 Room Air 12/19 1600 99.2 80 22 140/70 93 Room Air 12/19 1405 96 Room Air Intake & Output 12/20 1600 12/20 0800 12/20 0000 Intake Total 240 Output Total Balance 240 Intake, IV 0 Intake, Oral 240 Number 0 Bowel Movements Exam Other Physical Findings: General - Alert, awake and oriented HEENT - normocephalic, atraumatic Cardiovascular - S1, S2 Lungs - rare rhonchi, chest tube in place Abdomen - soft, bowel sounds positive, no tenderness Extremities - without edema or cyanosis Results Last 24 Hrs of Lab Results: Laboratory Tests 12/20/16 0648: Anion Gap 6, Estimated GFR > 60, Glucose 79, Calcium 8.8, Phosphorus 4.1, Magnesium 2.0, Total Bilirubin 0.4, AST 73 H, ALT 82 H, Albumin 3.5, CBC w Diff NO MAN DIFF REQ, RBC 3.69 L, MCV 90.9, MCH 30.4, RDW 14.2, MPV 8.5, Gran % 61.6, Lymphocytes % 19.6 L, Monocytes % 5.3, Eosinophils % 12.5 H, Basophils % 1.0, Absolute Granulocytes 3.2, Absolute Lymphocytes 1.0 L, Absolute Monocytes 0.3, Absolute Eosinophils 0.7, Absolute Basophils 0, PUBS MCHC 33.5 Impression/Plan Impression/Plan Impression/Plan: Impression 66-year-old woman with a cholecystectomy November with an incidental finding of a left upper lobe mass. Lesion was a regular in the left upper lobe and PET positive. Patient underwent navigational bronchoscopy with thinking followed by resection of mass consistent with carcinoma and has followed by lobectomy. Plan - Pain control - Post thoracotomy protocol with TRC - small left apical ptx - Strict ins and outs measurements - Monitor blood work and electrolytes - DVT prophylaxis at all times TTS 35 min dc planning Can DG after CT removed.
--- NOTE | 2016-12-20 14:15 | RADIOLOGY REPORT ---
EXAMINATION: XR PORTABLE CHEST CLINICAL INFORMATION: Status post left upper lobectomy. Chest tube discontinued one day ago. Evaluate for pneumothorax. COMPARISON: Several prior chest x-rays, most recent of which is dated 12/20/2016. TECHNIQUE: AP semierect portable view of the chest was obtained. FINDINGS: There is a persistent small left-sided pneumothorax with a maximal width of approximately 1 cm, unchanged from earlier today and increased compared to 12/19/2016 when the chest tube was still present. Small amount of subcutaneous emphysema along the lower lateral left chest wall is unchanged. Postoperative changes are seen in the left hemithorax status post left upper lobe resection. Left mid lung parenchymal opacity and mild bibasilar opacities are seen, unchanged. Mild biapical pleural thickening is noted. Bony structures are unremarkable. IMPRESSION: 1. No significant change in small left-sided pneumothorax. 2. Other findings stable over several prior exams.
[2016-12-20] MEDS ORDERED: XANAX0.5 M1 PO (14:47)
--- NOTE | 2016-12-28 17:51 | Surgical Discharge Summary ---
Visit Information Visit Dates Admission Date: 12/14/16 Discharge Date: 12/20/16 History of Present Illness Chief Complaint: The patient is a 66-year-old woman with an indeterminant left upper lobe lung nodule that is suspicious for cancer. She is admitted for diagnosis and definitive treatment. Medical History Blood Transfusion Hx: No Neurological: migraine EENT: allergies Cardiovascular: NONE Respiratory: LEFT LUNG NODULE Gastrointestinal: diverticulitis, hiatal hernia, irritable bowel syndrome, GALLSTONE PANCREATITIS S/P CHOLECYSTECTOMY Hepatic: NONE Renal: NONE Musculoskeletal: fibromyalgia, osteoporosis, L WRIST/L ANKLE FX Psychiatric: depression, GENERALIZED ANXIETY DO Endocrine: hyperparathyroidism, osteoporosis, vitamin D deficiency, S/P PART PARATHYROIDECTOM Blood Disorders: NONE Cancer(s): lung cancer, NON SMALL CELL OFFICE NURSE/Reproductive: NONE History of MRSA: No History of VRE: No History of CDIFF: No Isolation History: Standard Pneumonia Vaccine: 01/25/16 Influenza Vaccine: 10/20/16 Surgical History Pertinent Surgical History: cholecystectomy, PARATHYROID GLAND REMOVED L WRIST/L ANKLE FX REPAIRS Family History Relations & Conditions If Any: FATHER FH: colon cancer Relation not specified for: Diabetes mellitus in mother Hypertension in mother Psychosocial History Where Do You Live? Home Who Do You Live With? Spouse Services at Home: None What is Your Primary Language? Welsh Review of Systems: Unremarkable Hospital Course Course Attending Physician: ZECHARIAH BLAKE,JORGITO Price JR Primary Care Physician: CROW COLEMAN Hospital Course: She was admitted and underwent thoracoscopic resection of a left upper lobe lung mass. 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 She underwent a left upper lobectomy. She was admitted to the intensive care unit postoperatively where she remained clinically stable. Her chest tubes were removed when her air leak disappeared and she was then mobilized. She was discharged to home with good pain control and with her chest tubes removed. Her final pathology shows a stage IA lung cancer. Allergies: Coded Allergies: shellfish derived (Mild, RASH -SPECIFICALLY LOBSTER BUT DOESNT EAT ANY SEAFOOD 02/20/16) Disposition Summary Disposition Principal Diagnosis: Stage IA left upper lobe lung cancer Additional Diagnosis: None Discharge Disposition: home or self care Discharge Instructions General Discharge Information Code Status: Full Code Patient's Diet: Usual Patient's Activity: As tolerated Follow-Up Instructions/Appts: 2 weeks in the office with a chest x-ray Medications at Discharge Discharge Medications: Continue taking these medications: Sertraline HCl (Sertraline HCl) 50 MG TABLET 1 Tablet ORAL DAILY Comments: Last Taken: 12/20/16 Time: 10:30 AM Alendronate Sodium (Alendronate Sodium) 70 MG TAB 1 Tablet ORAL EVERY SUNDAY Qty = 4 Instructions: in the morning, at least 30 minutes before the first food, beverage, or medication of the day Comments: PER PT CHOLECALCIFEROL (VITAMIN D3) (Vitamin D-3) 2,000 IU SGL 1 SGL ORAL DAILY Comments: PER PT Start taking the following new medications: Oxycodone HCl/Acetaminophen (Percocet 5-325 MG Tablet) 5 MG-325 MG TABLET 1-2 Tablet ORAL EVERY 4-6 HOURS as needed for PAIN Qty = 30 No Refills Comments: Last Taken: 12/20/16 Time: 12:20 PM Alprazolam (Xanax) 0.5 MG TABLET 1 Tablet ORAL THREE TIMES A DAY NEEDED as needed for anxiety Qty = 20 No Refills Comments: Last Taken: 12/20/16 Time: 10:30 AM Copies To: CATIA DELGADILLO,CROW Brock; RAE SCOTT MD
== END 2016-12-20 15:45 | DRG 164 ==
LOC: CANRESERV → ENRESERVDT → ENRESERVTM → CRI 01:56 → SDA 01:56 → CRI 18:30
PROVIDERS: Internal Medicine; Physician Assistant; Physician Assistant Surgical; Student in an Organized Health Care Education/Training Program; ADMIT Thoracic Surgery (Cardiothoracic Vascular Surgery)
PROC: 07T70ZZ Resection of Thorax Lymphatic, Open Approach (ICD-10-PCS; principal; 2016-12-14)
PROC: 0BB Respiratory System, Excision (ICD-10-PCS; principal; 2016-12-14)
PROC: 0BJ08ZZ Inspection of Tracheobronchial Tree, Via Natural or Artificial Opening Endoscopic (ICD-10-PCS; principal; 2016-12-14)
PROC: 0BTG0ZZ Resection of Left Upper Lung Lobe, Open Approach (ICD-10-PCS; principal; 2016-12-14)
DX: C34.12 Malignant neoplasm of upper lobe, left bronchus or lung (principal); J95.811 Postprocedural pneumothorax; E55.9 Vitamin D deficiency, unspecified; E21.0 Primary hyperparathyroidism; Z87.891 Personal history of nicotine dependence; K21.9 Gastro-esophageal reflux disease without esophagitis; K58.9 Irritable bowel syndrome, unspecified; M81.0 Age-related osteoporosis without current pathological fracture; M19.90 Unspecified osteoarthritis, unspecified site; M79.7 Fibromyalgia
CPT/HCPCS: CCU; 36415; 82436; 87086; 88302; 88305; 88307; 88309; 88331; C9290; J0131; J0690; J1644; J2175; J2405; J2550